=== PATIENT | female | born 2000 | race Caucasian/White ===

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

== ENCOUNTER 2019-11-11 10:01 | Inpatient (IN) | payer OTHER ==
[2019-11-11] VITALS (44 sets, daily range): BP systolic 80–127; BP diastolic 41–73
[~2019-11-11] VITALS: Ht 157.5 cm; Wt 69.4 kg
--- NOTE | 2019-11-11 10:00 | NUR ---
PT BIBA FOR SEIZURES AND DR. SALES TO INTUBATE FOR AIRWAY PROTECTION, AT 1020 DR. SALES INTUBATED PT WITH 7.5 ETT AT 22CM VENT SETTINGS AC14 VT 500 PEEP 5 FIO2 100% B\S ARE DIMINISHED BILATERALLY, SPUTUM COLLECTION PINK TINT THICK SECRETIONS, PT HAS SOFT RESTRAINTS ON BOTH WRISTS AND IS GETTING SEDATION, UNABLE TO GET ABG AT THIS TIME WILL TRY LATER WHEN PT IS MORE CALM. RN BETTYE NOTIFIED AMBU BAG AT SIDE OF VENT AND VENT IS PLUGGED INTO RED OUTLET, ALARMS AND AUDIBLE
--- NOTE | 2019-11-11 10:01 | NUR ---
PT BIBA TAKEN TO BED 6
[2019-11-11] MEDS ORDERED: FLUMAZENIL 0.5 MG/5 ML VIAL IVP ONE ×2 (10:05→10:06)
[2019-11-11] MEDS ORDERED: levETIRAcetam 100 MG/ML VIAL IV ONE (10:10)
--- NOTE | 2019-11-11 10:11 | NUR ---
PATIENT MOVED FROM BED 6 TO BED 10
[2019-11-11] MEDS ORDERED: ETOMIDATE 20 MG/10 ML VIAL IVP ONE ×2 (10:12→10:25)
[2019-11-11] MEDS ORDERED: VECURONIUM 10 MG VIAL IVP ONE ×2 (10:12→10:25)
[2019-11-11] MEDS ORDERED: WATER STERILE 10 ML MC ONE (10:14)
[2019-11-11] MEDS ORDERED: NACL 0.9% 500 ML IV SCH (10:25)
[2019-11-11] MEDS ORDERED: levETIRAcetam 1,000 MG in NACL 0.9% 100 ML IV ONE (10:25)
[2019-11-11] MEDS ORDERED: PROPOFOL 1000 MG/100 ML PREMIX 100 ML IV ONE ×2 (10:30→13:35)
[2019-11-11 11:00] LABS: BASOPHILS # (AUTO) 0.1 K/uL (0.00-0.22); BASOPHILS % (AUTO) 0.5 % (0.0-2.0); EOSINOPHILS # (AUTO) 1.1 K/uL (0-0.4); HEMATOCRIT 49.4 % (36-48); LYMPHOCYTES # (AUTO) 4.7 K/uL (2.5-16.5); MEAN CORPUSCULAR HEMOGLOBIN 31 pg (27-31); MEAN CORPUSCULAR HGB CONC 32 g/dL (33-37); MEAN CORPUSCULAR VOLUME 96.3 fL (80-94); MONOCYTES # (AUTO) 0.3 K/uL (0.8-1.0); MONOCYTES % (AUTO) 1.9 % (1.7-9.3); NEUTROPHILS # (AUTO) 8.8 K/uL (1.8-7.7); PLATELET COUNT (AUTO) 284 K/uL (140-450); RED BLOOD CELL COUNT(AUTO) 5.12 MIL/uL (4.20-5.40); RED CELL DISTRIBUTION WIDTH 14.4 % (11.6-13.7); WHITE BLOOD COUNT (AUTO) 14.9 K/uL (4.5-11.0)
[2019-11-11] MEDS ORDERED: LORazepam 2 MG/ML VIAL IVP ONE (11:05)
[2019-11-11] MEDS ORDERED: LORazepam 2 MG/ML VIAL ONE (11:07)
[2019-11-11 11:18] LABS: EOSINOPHILS % (AUTO) 7.3 % (0.0-4.0); LYMPHOCYTES % (AUTO) 31.3 % (20.5-51.1)
[2019-11-11 11:19] LABS: ALBUMIN 4.3 g/dL (3.4-5.0); CREATININE 1.3 mg/dL (0.6-1.3); TOTAL BILIRUBIN 0.3 mg/dL (0.0-1.0)
[2019-11-11] MEDS ORDERED: PHENYTOIN 1,000 MG in NACL 0.9% 100 ML IV ONE (11:25)
[2019-11-11 11:32] LABS: ANION GAP 22.6 (8-16); CARBON DIOXIDE 17.8 mmol/L (21-32); POTASSIUM 3.4 mmol/L (3.5-5.1)
[2019-11-11 11:34] LABS: PROTHROMBIN TIME 11.5 secs (10.8-13.4)
[2019-11-11] MEDS ORDERED: PIPERACILLIN/TAZOBACTAM 3.375 GM in DEXTROSE 5% 50 ML IV ONE (12:25)
[2019-11-11] MEDS ORDERED: NACL 0.9% 1,500 ML IV ONE (12:25)
[2019-11-11] MEDS ORDERED: PIPERACILLIN/TAZOBACTAM 3.375 GM VIAL IV ONE (12:43)
--- NOTE | 2019-11-11 12:50 | NUR ---
# 16 FR Cano catheter with 10 ml utilizing sterile technique. Immediate return of 100 ml YELLOW urine noted. Bedside drainage bag placed below level of bladder. Urine sample collected and sent to lab. Pt tolerated procedure WELL.
--- NOTE | 2019-11-11 12:55 | NUR ---
URINE COLLECTED AND HANDED TO LAB
[2019-11-11 13:16] LABS: APPEARANCE,URINE CLEAR (CLEAR); BILIRUBIN,URINE NEGATIVE (NEGATIVE); BLOOD, URINE NEGATIVE (NEGATIVE); COLOR,URINE YELLOW (YELLOW); LEUKOCYTE ESTERASE ,URINE NEGATIVE (NEGATIVE); NITRITE, URINE NEGATIVE (NEGATIVE); UGLUCOSE NEGATIVE (NEGATIVE)
[2019-11-11] MEDS ORDERED: fentaNYL 1 MG in NACL 0.9% 80 ML IV PRN (13:35)
--- NOTE | 2019-11-11 13:43 | NUR ---
CALLED PHARMACY TO BRING FENTANYL
--- NOTE | 2019-11-11 13:50 | NUR ---
pt to ct for scan and placed anchor fast on pt ett at 22cm sxn large amt of frothy bloodly secretions changed vent setting to pc 20 rr 14 itime0.70 peep 5 fio2 100% due to high peak pressures
--- NOTE | 2019-11-11 14:30 | NUR ---
TRANSPORTED TO CT VIA HOSPITAL BED FOR CT OF THE HEAD
--- NOTE | 2019-11-11 14:45 | NUR ---
Patient will be admitted to care of DR MUNSON. Admited to ICU BED 2. Belongings list completed. Report to given to GERTRUDIS Perez
--- NOTE | 2019-11-11 14:45 | NUR ---
PT ADMITTED TO ICU FROM ER, REPORT RECEIVED FROM GERTRUDIS SELBY AT BEDSIDE. PT IS SEDATED, RASS -3. FLACC 0. PERRLA. AFEBRILE. SINUS TACHY ON MONITOR. S1 S2 HEARD. ETT TO VENT: A/C PC FIO2 90%, PINSP 20, RR 14, PEEP 7. LUNGS SOUND CLEAR BILATERALLY. BREATHING EVEN AND UNLABORED. ABDOMEN SOFT, NONTENDER. BOWEL SOUNDS PRESENT X 4 QUADRANTS. PERIPHERAL IVS G20 TO RIGHT FOREARM AND G18 TO LEFT AC PATENT AND INTACT, RUNNING PROPOFOL DRIP AT 30 MCG/KG/MIN (11.34 ML/HR. DRY WEIGHT 63 KG), FENTANYL DRIP AT 0.5 MCG/KG/HR (31 MCG/HR). GODOY CATH IN PLACE DRAINING LIGHT YELLOW URINE. SKIN INTACT, DRY AND WARM TO TOUCH. CAP REFILL < [address] HOB 30 DEGREES. BED IN LOWEST POSITION LOCKED. CALL LIGHT WITHIN REACH. WILL CONTINUE TO MONITOR.
[2019-11-11] MEDS ORDERED: PROPOFOL 1000 MG/100 ML PREMIX 100 ML IV SCH (15:10)
[2019-11-11] MEDS ORDERED: ALUMINUM HYD/MAG/SIMETHICONE 30 ML UDC PO PRN (15:15)
[2019-11-11] MEDS ORDERED: IPRATROPIUM 0.02% 0.5 MG/2.5 ML NEBU INH PRN (15:15)
[2019-11-11] MEDS ORDERED: POTASSIUM CHLORIDE 10 MEQ TABER PO PRN (15:15)
[2019-11-11] MEDS ORDERED: ACETAMINOPHEN 650 MG SUPP RC PRN (15:15)
[2019-11-11] MEDS ORDERED: HYDROcodone/APAP 5/325 MG 1 TAB TAB PO PRN ×2 (15:15)
[2019-11-11] MEDS ORDERED: MAG SULF 2000 MG/WATER PREMIX 50 ML IV PRN (15:15)
[2019-11-11] MEDS ORDERED: MAGNESIUM OXIDE 400 MG TAB PO PRN (15:15)
[2019-11-11] MEDS ORDERED: cloNIDine 0.1 MG TAB PO PRN (15:15)
[2019-11-11] MEDS ORDERED: diphenhydrAMINE 50 MG/ML VIAL IVP PRN (15:15)
[2019-11-11] MEDS ORDERED: DOCUSATE SODIUM 250 MG GELCAP PO PRN (15:15)
[2019-11-11] MEDS ORDERED: guaiFENesin DM 200/20 MG-10 ML 10 ML UDC PO PRN (15:15)
[2019-11-11] MEDS ORDERED: ACETAMINOPHEN 325 MG TAB PO PRN (15:15)
[2019-11-11] MEDS ORDERED: ALBUTEROL 0.083% 2.5 MG/3 ML NEBU INH PRN (15:15)
[2019-11-11] MEDS ORDERED: BISACODYL 10 MG SUPP RC PRN (15:15)
[2019-11-11] MEDS ORDERED: SODIUM PHOSPHATE 118 ML ENEM RC PRN (15:15)
--- NOTE | 2019-11-11 15:15 | NUR ---
PT SEEN AND EXAMINE PT DR. MUNSON AT BEDSIDE. ORDERS RECEIVED. Addendum: 11/11/19 at 1853 by Rohan Barr RN DISCONTINUE FENTANYL DRIP PER DR. MUNSON. ORDER CARRIED OUT.
[2019-11-11] MEDS: DEXT 5% /NACL 0.9% 1,000 ML IV SCH (15:45)
--- NOTE | 2019-11-11 16:00 | NUR ---
VAP ORAL CARE GIVEN. TURNED AND REPOSITIONED FOR COMFORT AND PRESSURE OFF LOADING.
--- NOTE | 2019-11-11 18:00 | NUR ---
PT'S MOTHER AT BEDSIDE. UPDATES GIVEN ON PT'S CONDITION.
[2019-11-11] MEDS ORDERED: ALBUTEROL 0.083% 2.5 MG/3 ML NEBU INH SCH (19:00)
[2019-11-11] MEDS: ALBUTEROL 0.083% 2.5 MG/3 ML NEBU INH SCH (19:22)
--- NOTE | 2019-11-11 19:30 | NUR ---
RECIEVED PT FROM ROGERIO RN. RESTING IN BED COMFORTABLY. RASS-3 ACHIEVED PER MD ORDERS. PERRL WITH PUPILS @ 2MM, BRISK. ETT TO VENT IN PLACE WITH SETTINGS FOLLOWS: AC/PC FI02 40%, RATE 14, PEEP 7. PERIPHERAL IV'S TO RT FA/ LT AC PATENT. INFUSING D5 NS @ 50ML/HR, PROPOFOL @ 35MCG/KG/MIN. DRY WEIGHT [address] DRAINING CLEAR, YELLOW, URINE TO GRAVITY. SOFT WRIST RESTRAINTS IN PLACE. CIRCULATION CHECK WNL, NO INJURIES OBSERVED. PRESSURE AREAS OFFLOADED. SKIN WARM, DRY, AND INTACT. ST ON MONITOR. SAFETY PRECAUTIONS REMAIN IN PLACE WITH BED LOW AND LOCKED. CALL LIGHT WITHIN REACH. HOB @ 30 DEGREES WITH SEIZURE PRECAUTIONS IN PLACE. WILL CONT TO MONITOR.
--- NOTE | 2019-11-11 19:30 | NUR ---
REPORT GIVEN TO PSYCHIATRIC AIDE INSTRUCTOR RN FOR CONTINUITY OF CARE. PT IS IN STABLE CONDITION.
[2019-11-11] MEDS ORDERED: KCL 20 MEQ/WATER INJ PREMIX 200 ML IV ONE (19:45)
[2019-11-11] MEDS: FAMOTIDINE 20 MG/2 ML VIAL IV SCH (20:12)
[2019-11-11] MEDS: levETIRAcetam 1,000 MG in NACL 0.9% 100 ML IV SCH (20:13)
[2019-11-11] MEDS: PROPOFOL 1000 MG/100 ML PREMIX 100 ML IV PRN (20:48)
[2019-11-11] MEDS ORDERED: ZOLPIDEM 5 MG TAB PO PRN (21:00)
--- NOTE | 2019-11-11 22:00 | NUR ---
REPOSITIONED WITH PRESSURE AREAS OFFLOADED. FLACC 0. SUCTIONED ETT WITH SCANT AMOUNT OF BLOOD-TINGED SECRETIONS. SAFETY PRECAUTIONS REMAIN IN PLACE. BED LOW AND LOCKED. HOB REMAINS @ 30 DEGREES.
[2019-11-12] VITALS (52 sets, daily range): BP systolic 80–128; BP diastolic 41–82
--- NOTE | 2019-11-12 | NUR ---
VAP ORAL CARE PROVIDED. REPOSITIONED FOR COMFORT. FLACC 0. CONTINUES ON SEDATION WITH RASS -3 ACHIEVED PER MD ORDERS. SAFETY PRECAUTIONS REMAIN IN PLACE. BED LOW AND LOCKED. WILL CONT TO MONITOR.
[2019-11-12] MEDS: ALBUTEROL 0.083% 2.5 MG/3 ML NEBU INH SCH ×4 (01:29→19:54)
--- NOTE | 2019-11-12 01:39 | NUR ---
PATIENTS FIO2 HAS BEEN TITRATED DOWN TO 30% through out shift. sats 98%
--- NOTE | 2019-11-12 02:00 | NUR ---
RASS -3 AT THIS TIME. REPOSITIONED WITHPRESSURE AREAS OFFLOADED. MAREN/CATH CARE PROVIDED. SAFETY PRECAUTIONS IN PLACE. WILL CONT TO MONITOR.
[2019-11-12] MEDS: MORPHINE SULFATE 2 MG/ML SYR IVP PRN ×3 (03:19→14:47)
[2019-11-12] MEDS: PROPOFOL 1000 MG/100 ML PREMIX 100 ML IV PRN (03:23)
[2019-11-12] MEDS: LORazepam 2 MG/ML VIAL IVP PRN ×3 (04:50→19:22)
[2019-11-12 05:49] LABS: ANION GAP 18.5 (8-16); CARBON DIOXIDE 18.4 mmol/L (21-32); CREATININE 1.2 mg/dL (0.6-1.3); POTASSIUM 3.9 mmol/L (3.5-5.1)
[2019-11-12 06:05] LABS: HEMATOCRIT 41.1 % (36-48); HEMOGLOBIN 13.5 g/dL (12.0-16.0); MEAN CORPUSCULAR HEMOGLOBIN 31 pg (27-31); MEAN CORPUSCULAR HGB CONC 33 g/dL (33-37); MEAN CORPUSCULAR VOLUME 93.9 fL (80-94); PLATELET COUNT (AUTO) 175 K/uL (140-450); RED BLOOD CELL COUNT(AUTO) 4.38 MIL/uL (4.20-5.40); RED CELL DISTRIBUTION WIDTH 14.2 % (11.6-13.7); WHITE BLOOD COUNT (AUTO) 16.3 K/uL (4.5-11.0)
--- NOTE | 2019-11-12 06:33 | NUR ---
REC'D PT ON [place] VENT SETTINGS PC20 RR 13 PEEP 7 ITIME 0.70 FIO2 30% ALARMS ON AND AUDIBLE AND AMBU BAG AT [facility] AND VENT IS PLUGGED INTO RED OUTLET, I\L TX GIVEN WITH ALBUTEROL 2.5MG WITH NO ADVERSE REACTION POST TX B\S ARE CLEAR BILATERALLY, SXN PT SMALL AMT OF BLOOD TINT SECRETIONS, PT IS ORALLY INTUBATED WITH 7.5 ETT SECURED AT 23 CM WITH ANCHOR FAST PT IS SEDATED WITH SOFT WRISTS RESTRAINTS
[2019-11-12 07:14] LABS: LYMPHOCYTES % (MANUAL) 4 % (20-46)
[2019-11-12 07:15] LABS: BASOPHILS % (MANUAL) 0 % (0-2); EOSINOPHILS % (MANUAL) 1 % (0-4); MONOCYTES % (MANUAL) 4 % (5-12)
--- NOTE | 2019-11-12 07:30 | NUR ---
RECIEVED PT FROM PM SHIFT RN. PT SEDATED RASS-3 , PERRL WITH PUPILS @ 3MM, BRISK. BEDSIDE MONITOR SHOWS ST 120S. ETT TO VENT WITH SETTINGS FOLLOWS: AC/PC FI02 30%, RATE 14, PEEP 7. LUNG SOUND CLEAR. PERIPHERAL IV'S TO RT FA# 20 AND LT AC # 18 PATENT. INFUSING D5 1/2NS @ 50ML/HR, PROPOFOL @ 30MCG/KG/MIN BASED ON DRY WEIGHT 63 KG.SOFT WRIST RESTRAINTS IN PLACE. CIRCULATION CHECK WNL, NO INJURIES NOTED . GODOY IN PLACE WITH CLEAR, YELLOW, URINE NOTED. SKIN WARM, DRY, AND INTACT. SAFETY PRECAUTIONS REMAIN IN PLACE WITH LOW BED POSITION AND LOCKED. CALL LIGHT WITHIN REACH. HOB @ 30 DEGREES WITH SEIZURE PRECAUTIONS IN PLACE. WILL CONT TO MONITOR.
--- NOTE | 2019-11-12 08:26 | NUR ---
called back, notified pt [id number] since I this morning and table games shift manager. SBP 80S AND PT IS ON PROPOFOL DRIP. PER DR. MUNSON, TRY TO DECREASE PROPOFOL DRIP AND MAKE PT MORE AWAKE. HE WANTS TO EXTUBATE PT TODAY, ALSO NOTIFIED DR. MUNSON REGARDING THIS MORNING X-RAY REPORT. DR. MUNSON STATED HE WILL COME TO CHECK. CHARGE NURSE JAYLON MCKENZIE MADE AWARE.
[2019-11-12] MEDS: levETIRAcetam 1,000 MG in NACL 0.9% 100 ML IV SCH ×2 (08:36→20:30)
[2019-11-12] MEDS: ENOXAPARIN 40 MG/0.4 ML SYR SUBQ SCH (08:37)
[2019-11-12] MEDS: FAMOTIDINE 20 MG/2 ML VIAL IV SCH ×2 (08:37→20:30)
--- NOTE | 2019-11-12 08:51 | NUR ---
PATIENT HAS BEEN SCREENED AND CATEGORIZED HIGH NUTRITION RISK. PATIENT WILL BE SEEN WITHIN 1-2 DAYS OF ADMISSION. 11/10/19-11/13/[address]
--- NOTE | 2019-11-12 09:45 | NUR ---
DR. MUNSON AT BEDSIDE TALKING TO PT PLACED PT ON CPAP 5 PS 10 THEN AT 0950 EXTUBATED PT PLACED ON 2LNC GERTRUDIS SCOTT AT BEDSIDE
--- NOTE | 2019-11-12 09:50 | NUR ---
DR. MUNSON CAME IN TO CHECK PT. ORDER TO EXTUBATE PT AND PT ON O2 NC 2L/MIN . PT TOLERATED WELL. Addendum: 11/12/19 at 1715 by Rebeca Kate RN PT OFF RESTRAIN AT 0950.
--- NOTE | 2019-11-12 10:28 | NUR ---
SPOKE TO PATIENT'S SISTER AND MOTHER, UPDATED PATIENT'S CONDITION AT THIS TIME, PATIENT IS ALERT AND ORIENTED, EXTUBATED, BUT ANXIOUS AND AGITATED, THEY WILL COME TO SEE PATIENT MELVI.
--- NOTE | 2019-11-12 10:35 | NUR ---
F/C REMOVED PER ORDER. TIP INTACT. URINE OUT PUT 500 CC.
--- NOTE | 2019-11-12 10:54 | NUR ---
PATIENT IS AGITATED, TRYING TO GET OUT OF THE BED, SCREAMING AND VERBAL ABUSED TO NURSES, TRYING TO COME PATIENT DOWN, PATIENT IS MORE AGITATED, ATIVAN GIVEN, PATIENT IS MORE CALM, WILL CONTINUE TO MONITOR.
[2019-11-12] MEDS: ONDANSETRON 4 MG/2 ML VIAL IVP PRN ×3 (11:24→22:45)
--- NOTE | 2019-11-12 11:44 | NUR ---
DISCHARGE PLANNING: THIS IS A 19 Y/O FEMALE PATIENT FROM HOME, WHO WAS BROUGHT IN BY AMBULANCE IN DUE TO SEIZURE. PAST MEDICAL HISTORY SEIZURE. INITIAL DIAGNOSIS OF STATUS EPILEPTICUS AND RESPIRATORY FAILURE. CURRENT LABS INCLUDE WBC 16.3, H/H 13.5/41.1, NA/K 144/3.9, BUN/CREA 9/1.2 AND LACTIC ACID 4.3. CURRENT MEDS INCLUDE ROCEPHIN, KEPPRA. ORALLY INTUBATED IN THE ED, WAS PLACED ON VENT. ON PROPOFOL DRIP. NEURO CONSULT WITH DR. PRINGLE IN PLACE. DC PLAN PENDING ON THE PATIENT'S RESPONSE TO TREATMENT.
[2019-11-12] MEDS: DEXT 5% /NACL 0.9% 1,000 ML IV SCH (12:35)
--- NOTE | 2019-11-12 12:37 | NUR ---
PT STATED SHE WANTS TO GO HOME. EXPLAINED TO PT SHE NEEDS ONE MORE DAY MONITORING PER MD. PT'S MOTHER AT BEDSIDE.
--- NOTE | 2019-11-12 13:14 | NUR ---
11/12/19 RD INITIAL ASSESSMENT COMPLETED PLEASE REFER TO NUTRITION ASSESSMENT UNDER CARE ACTIVITY FOR ESTIMATED NUTRITIONAL NEEDS. 1. CONTINUE NPO MEDICALLY APPROPRIATE 2. PENDING SPEECH THERAPIST RECOMMENDATIONS FOR DIET TEXTURE AND LIQUID CONSISTENCY 3. RD TO FOLLOW-UP 2-3 DAYS, HIGH RISK ESA HIRSCH, PATRICIA
[2019-11-12] MEDS ORDERED: ALBUTEROL 0.083% 2.5 MG/3 ML NEBU INH ONE (13:15)
--- NOTE | 2019-11-12 13:16 | NUR ---
*S.T. BEDSIDE SWALLOW EVAL COMPLETED* See report for details. Pt presents w/ mild-mod oropharyngeal dysphagia c/b weak oromotor function w/ prolonged mastication, anterior lingual residue, open mouth posture at rest, delayed pharyngeal swallow response and coughing w/ ice chips fed by mother while lying supine. Pt was agitated throughout the eval, defiant w/ nsg and mother re: keepin nasal cannula O2 on and participation in eval. Recommend: 1) Mechanical soft ground diet, thin liquids okay, straws okay. 2) Advance diet slowly as tolerated to regular diet, when pt's coordination, alertness, safety awareness improve. 3) P.O. meds okay whole, one at a time. 4) Nsg to assist w/ tray set up to promote self-feeding 5) Withhold meal trays if pt is lethargic 6) Aspiration precautions to include: fully upright at 90 degrees, awake/alert only, small bites, sips at slow pace, no talking or use of devices or other distractions during meals/P.O. intake. No further tx indicated at this time. DC to nsg care. D/W GERTRUDIS Mendes. Time [id number]
--- NOTE | 2019-11-12 17:15 | NUR ---
PT SLEEPING IN BED. HR 115S. O2 SATS 93%, RR 20.
--- NOTE | 2019-11-12 17:51 | NUR ---
PT SLEEPING, OFFERED PT DINNER TRAY, PT STATED SHE DOES NOT WANT TO EAT AT THIS TIME.
--- NOTE | 2019-11-12 19:22 | NUR ---
PT C/O ANXIETY. ATTEMPTING TO STAND UP FROM BED UNASSISTED. ATIVAN ADMINISTERED ORDERED WITH GOOD EFFECT. SAFETY/SEIZURE PRECAUTIONS REMAIN IN PLACE. BED LOW AND LOCKED. EDUCATED PT ON IMPORTANCE OF REQUESTING ASSISTANCE WITH ALL TRANSFERS VIA CALL LIGHT. CALL LIGHT LEFT WITHIN REACH. WILL CONT TO MONITOR
--- NOTE | 2019-11-12 19:30 | NUR ---
RECEIVED PT FROM ROGERIO CABA. RESTING IN BED WITH MOTHER AT BEDSIDE. PERRL WITH PUPILS @ 3MM, BRISK. PERIPHERAL IV'S TO RT FA PATENT. PT C/O NAUSEA AND HEAVING. ZOFRAN ADMINISTERED ORDERED WITH GOOD EFFECT. SKIN WARM, DRY, AND INTACT. ST ON MONITOR. CONTINUES ON 2LPM VIA NC. SPO2 @ 93%. LUNGS CLEAR THROUGHOUT. SAFETY PRECAUTIONS REMAIN IN PLACE WITH BED LOW AND LOCKED. CALL LIGHT WITHIN REACH. HOB @ 30 DEGREES WITH SEIZURE PRECAUTIONS IN PLACE. WILL CONT TO MONITOR.
--- NOTE | 2019-11-12 22:00 | NUR ---
VAP ORAL CARE PROVIDED. REPOSITIONED WITH PRESSURE AREAS OFFLOADED. SAFETY PRECAUTIONS REMAIN IN PLACE. BED LOW AND LOCKED. SEIZURE PRECAUTIONS REMAIN IN PLACE.
--- NOTE | 2019-11-12 22:45 | NUR ---
ZOFRAN ADMINISTERED FOR C/O NAUSEA. TOLERATED WELL. WILL FOLLOW UP.
[2019-11-13] VITALS (10 sets, daily range): BP systolic 90–141; BP diastolic 49–87
--- NOTE | 2019-11-13 | NUR ---
PT RESTING IN BED COMFORTABLY, EASILY AROUSABLE. NO RESPIRATORY DISTRESS NOTED. DENIES PAIN. SAFETY PRECAUTIONS REMAIN IN PLACE WITH CALL LIGHT WITHIN REACH
[2019-11-13] MEDS: ALBUTEROL 0.083% 2.5 MG/3 ML NEBU INH SCH ×4 (02:00→21:07)
--- NOTE | 2019-11-13 02:00 | NUR ---
PT UP USING BEDSIDE COMMODE AT THIS TIME.
--- NOTE | 2019-11-13 04:00 | NUR ---
OFFERED PT BED BATH @ THIS TIME. PT REFUSED D/T BEING "COLD."
[2019-11-13 05:18] LABS: BASOPHILS # (AUTO) 0.1 K/uL (0.00-0.22); BASOPHILS % (AUTO) 0.6 % (0.0-2.0); EOSINOPHILS # (AUTO) 0.2 K/uL (0-0.4); EOSINOPHILS % (AUTO) 1.8 % (0.0-4.0); HEMATOCRIT 34.3 % (36-48); HEMOGLOBIN 11.5 g/dL (12.0-16.0); LYMPHOCYTES # (AUTO) 1.3 K/uL (2.5-16.5); LYMPHOCYTES % (AUTO) 9.8 % (20.5-51.1); MEAN CORPUSCULAR HEMOGLOBIN 31 pg (27-31); MEAN CORPUSCULAR HGB CONC 34 g/dL (33-37); MEAN CORPUSCULAR VOLUME 92.3 fL (80-94); MONOCYTES # (AUTO) 0.3 K/uL (0.8-1.0); MONOCYTES % (AUTO) 2.6 % (1.7-9.3); NEUTROPHILS # (AUTO) 11.6 K/uL (1.8-7.7); NEUTROPHILS % (AUTO) 85.2 % (42.2-75.2); PLATELET COUNT (AUTO) 158 K/uL (140-450); RED BLOOD CELL COUNT(AUTO) 3.71 MIL/uL (4.20-5.40); RED CELL DISTRIBUTION WIDTH 13.9 % (11.6-13.7); WHITE BLOOD COUNT (AUTO) 13.6 K/uL (4.5-11.0)
[2019-11-13] MEDS: ONDANSETRON 4 MG/2 ML VIAL IVP PRN ×2 (05:50→18:07)
[2019-11-13 05:53] LABS: ANION GAP 13.4 (8-16); CARBON DIOXIDE 23.2 mmol/L (21-32); CREATININE 0.8 mg/dL (0.6-1.3); POTASSIUM 3.6 mmol/L (3.5-5.1)
--- NOTE | 2019-11-13 07:14 | NUR ---
REPORT GIVEN TO DAYSHIFT RN FOR CONTINUITY OF CARE
--- NOTE | 2019-11-13 07:30 | NUR ---
RECEIVED PT FROM PM SHIFT RN. SLEEPING BUT AROUSABLE. BEDSIDE MONITOR SHOWS ST. PUPILS BRISK. PERIPHERAL IV'S TO LEFT FA PATENT. SKIN WARM, DRY, AND INTACT. PT ON RA, SPO2 @ 92%. LUNGS CLEAR THROUGHOUT. PT REFUSED O2 NC. SAFETY PRECAUTIONS REMAIN IN PLACE WITH BED LOW POSITION. CALL LIGHT WITHIN REACH. HOB @ 30 DEGREES WITH SEIZURE PRECAUTIONS IN PLACE. WILL CONT TO MONITOR
--- NOTE | 2019-11-13 08:06 | NUR ---
ASSISTED PT TO USE BEDSIDE COMMODE, PT HAD MODERATE AMOUNT OF BROWNISH SOFT BM. CLEANED PT. PT ALSO HAVE NAUSEA AT THIS TIME, FOUND PT PUT HER LEFT PINK FINGER IN TO HER MOUTH, TOLD PT NOT PUT FINGER IN HER MOUTH, PT STATED" THIS CAN HELP ME TO THROW UP FASTER AND EASIER".
--- NOTE | 2019-11-13 08:30 | NUR ---
OFFERED BREAKFAST TRAY, PT ONLY DRINK SOME ORANGE JUICE. PT STATED SHE DOES NOT WANT TO EAT.
[2019-11-13] MEDS: ENOXAPARIN 40 MG/0.4 ML SYR SUBQ SCH (09:28)
[2019-11-13] MEDS: FAMOTIDINE 20 MG/2 ML VIAL IV SCH ×2 (09:28→20:49)
[2019-11-13] MEDS: levETIRAcetam 1,000 MG in NACL 0.9% 100 ML IV SCH ×2 (09:28→20:48)
--- NOTE | 2019-11-13 09:30 | NUR ---
PT HAD FEVER AT 0849, TEMP 100.4F. TYLENOL GIVEN, AND ENCOURAGED PT TO DRINK MORE WATER. RECHECK AT THIS TIME ORAL TEMP 99.1F.
[2019-11-13] MEDS ORDERED: guaiFENesin/CODEINE 100/10MG 5 ML UDC ONE (09:46)
--- NOTE | 2019-11-13 10:45 | NUR ---
DR. MUNSON CAME IN TO CHECK PT. UPDATED PT HAD FEVER AND COUGH THIS MORNING, AGTER MEDICATION GIVEN. PT SYMPTOMS GETTING BETTER. DR. MUNSON DID PHYSICAL EXAM ON PT, THEN DR. MUNSON STATED OK TO TRANSFER. Addendum: 11/13/19 at 1841 by Rebeca Kate RN DR. MUNSON MADE AWARE OF PT HR 110S.
[2019-11-13] MEDS ORDERED: PROBIOTIC SCREEN 1 EA MISC MC PRN (10:55)
--- NOTE | 2019-11-13 12:06 | NUR ---
PCP Appointment: KOBE attempted to arrange for PCP appointment and spoke to Ellen at Dr. Jaswinder Kang's office [phone]. Per Ellen, clinic is not allowing PCP appointments due to COVID-19. KOBE informed Ellen that patient was an [facility] patient. Ellen stated she would contact physician and follow up with SW to coordinate hospital follow up.
--- NOTE | 2019-11-13 13:34 | NUR ---
PT'S MOTHER AT BEDSIDE.
--- NOTE | 2019-11-13 15:55 | NUR ---
PT SLEEPING QUIETLY IN BED, NO S/S OF RESPIRATORY DISTRESS NOTED. O2 SATS BETWEEN 94-100%.
--- NOTE | 2019-11-13 17:30 | NUR ---
TRANSFERRED PT TO TELE 110 B. PT AMBULATE FROM HALLWAY TO PT'S BED. REPORT GIVEN TO PAULA. NOTIFIED PAULA PT HAS O2 NC 2L/MIN BUT PT WAS ON RA THE WHOLE DAY WITHOUT DESATING. PT DOES NOT LIKE NC EITHER, PT WILL REMOVE IT.
--- NOTE | 2019-11-13 17:31 | NUR ---
RECEIVED REPORT FROM GUEST EXPERIENCE MANAGER SONIA. PT AAOX4, DENIES PAIN. IV ON RT FA 2O GA RUNNING IVF PER ORDER. PT ON CONTINUITY MANAGER. RESPIRATIONS EVEN AND UNLABORED ON RA. ABD SOFT, ACTIVE BS, PT HAD MULTIPLE EPISODES OF VOMITING. SKIN IS INTACT WARM TO TOUCH. REVIEWED POC WITH PT, PT VERBALIZED UNDERSTANDING.
--- NOTE | 2019-11-13 18:07 | NUR ---
ADMINISTERED ZOFRAN PER ORDER, PT HAD MULTIPLE EPISODES OF VOMITING WITH MINIMAL AMOUNT OF CLEAR FLUID. PT REFUSES TO EAT DINNER AT THIS TIME.
--- NOTE | 2019-11-13 19:12 | NUR ---
ADMINISTERED O2 2L VIA N/C, PT C/O DYSPNEA, RR 16, EVEN AND UNLABORED.
--- NOTE | 2019-11-13 19:20 | NUR ---
ENDORSED PT TO GERTRUDIS LINDQUIST. PT HAS NO S/S OF DISTRESS AT THIS TIME.
--- NOTE | 2019-11-13 19:21 | NUR ---
RECEIVED BEDSIDE SHIFT REPORT FROM AM NURSE FOR CONTINUITY OF CARE. PATIENT AWAKE IN BED. NO SIGNS OF DISTRESS NOTED. RESPIRATIONS EVEN AND UNLABORED ON 2L O2 VIA NC. TELE MONITOR IN PLACE. SAFETY MEASURES IN PLACE BED IN LOW POSITION CALL LIGHT WITHIN REACH
--- NOTE | 2019-11-13 20:48 | NUR ---
2100 MEDS ADMINISTERED FOR PATIENT. PT TOLERATED WELL. NO SIGNS OF DISTRESS NOTED.
--- NOTE | 2019-11-13 23:30 | NUR ---
PT ACTIVATED BED ALARM. ASSISTED PT TO GO TO THE RESTROOM. PTS GAIT UNSTEADY AND PT OUT OF CONTACT WITH REALITY STATING THAT HER MOTHER WAS OUTSIDE OF THE WINDOW CONVERSING WITH HER. TRIED TO REORIENT PATIENT TO SITUATION. PT BECAME UPSET AND STARTED CURSING AT NURSES CALLING NURSES LIARS AND REQUESTING TO SPEAK WITH . ASSISTED PT TO BED ADDRESSED PTS NEEDS.
[2019-11-14] VITALS: BP 112/64
[2019-11-14] MEDS: ALBUTEROL 0.083% 2.5 MG/3 ML NEBU INH SCH ×2 (01:39→07:42)
--- NOTE | 2019-11-14 02:00 | NUR ---
ROUNDING. PT RESTING IN BED. NO SIGNS OF DISTRESS NOTED. PT RESPIRATIONS EVEN AND UNLABORED. TELE MONITOR IN PLACE. SAFETY MEASURES IN PLACE. BED ALARM ACTIVATED. CALL-LIGHT WITHIN REACH
[2019-11-14 04:00] VITALS: BP 114/66
--- NOTE | 2019-11-14 04:15 | NUR ---
FOUND PATIENT WITH IV CATHETER OUT. PT REFUSED TO HAVE NEW IV INSERT. PT INSISTS SHE IS GOING HOME IN AM. EXPLAINED TO PT THAT SHE HAS SCHEDULED IV KEPPRA DUE AT 0900 FOR SEIZURE. PT AGREED TO IV INSERT.
--- NOTE | 2019-11-14 04:45 | NUR ---
PT WENT TO THE RESTROOM WITNESSED BY ANOTHER RN. ASSISTED PT BACK TO BED. GAIT MORE STEADY. EXPLAINED TO PT ABOUT NEW IV INSERT. PT REFUSED IV INSERT SHE INSISTED THAT SHE WILL BE GOING HOME TODAY IN AM. SHE USED FOUL LANGUAGE TO DESCRIBE PREVIOUS NURSES AND TECHS. TRIED TO REEDUCATE PATIENT ON IMPORTANCE OF IV INSERTION FOR SEIZURE MEDS. PT STILL REFUSED. WILL NOTIFY
--- NOTE | 2019-11-14 06:00 | NUR ---
PAGECharissa SOLIS TO REPORT PT REFUSAL OF NEW IV INSERT. PT AWAKE LYING DOWN IN BED. REQUESTED AND PROVIDED WITH HALF A CUP OF WATER. NO SIGNS OF DISTRESS NOTED. WILL ENDORSE TO AM NURSE FOR CONTINUITY OF CARE.
--- NOTE | 2019-11-14 06:15 | NUR ---
CALLED AND NOTIFIED FOR IV INSERT REFUSAL. NEW ORDER PO KEPPRA 1,000 MG Q12H, AND LORETTA IV KEPPRA.
[2019-11-14 07:02] LABS: BASOPHILS % (AUTO) 0.2 % (0.0-2.0); EOSINOPHILS # (AUTO) 0.2 K/uL (0-0.4); HEMATOCRIT 33.4 % (36-48); HEMOGLOBIN 11.2 g/dL (12.0-16.0); LYMPHOCYTES # (AUTO) 1.5 K/uL (2.5-16.5); LYMPHOCYTES % (AUTO) 13.1 % (20.5-51.1); MEAN CORPUSCULAR HEMOGLOBIN 31 pg (27-31); MEAN CORPUSCULAR HGB CONC 34 g/dL (33-37); MEAN CORPUSCULAR VOLUME 92.4 fL (80-94); MONOCYTES # (AUTO) 0.4 K/uL (0.8-1.0); MONOCYTES % (AUTO) 3.2 % (1.7-9.3); NEUTROPHILS # (AUTO) 9.2 K/uL (1.8-7.7); NEUTROPHILS % (AUTO) 81.5 % (42.2-75.2); PLATELET COUNT (AUTO) 179 K/uL (140-450); RED BLOOD CELL COUNT(AUTO) 3.62 MIL/uL (4.20-5.40); RED CELL DISTRIBUTION WIDTH 13.9 % (11.6-13.7); WHITE BLOOD COUNT (AUTO) 11.2 K/uL (4.5-11.0)
[2019-11-14 07:07] LABS: CARBON DIOXIDE 26.4 mmol/L (21-32); CREATININE 0.6 mg/dL (0.6-1.3); POTASSIUM 3.4 mmol/L (3.5-5.1)
--- NOTE | 2019-11-14 07:30 | NUR ---
RECEIVED PT. FROM PLATING STRIPPER NURSEAMEENA. IV REMOVED BY PT. AT 0700. PT IS ALERT AND IN BED. VERBALIZES NO PAIN AND WISHES TO BE DISCHARGED TODAY. FALL PRECAUTIONS INITIATED. V/S STABLE. CALL LIGHT WITHIN REACH. WILL CONTINUE TO MONITOR.
[2019-11-14 08:00] VITALS: BP 108/64
[2019-11-14] MEDS: ENOXAPARIN 40 MG/0.4 ML SYR SUBQ SCH (08:39)
[2019-11-14] MEDS: FAMOTIDINE 20 MG/2 ML VIAL IV SCH (08:40)
--- NOTE | 2019-11-14 08:43 | NUR ---
MORNING MEDICATIONS GIVEN. NO SIGNS OF DISTRESS NOTED. REFUSED PEPCID IV AND LOVENOX SUBQ, PT. STATES NOT WANTING TO BE POKED AGAIN. WILL CONTINUE TO MONITOR.
[2019-11-14] MEDS ORDERED: levETIRAcetam 500 MG TAB PO SCH (09:00)
--- NOTE | 2019-11-14 11:00 | NUR ---
DR. MUNSON IS WITH THE PT. DISCHARGED ORDERS FOR TODAY WERE GIVEN.
[2019-11-14 12:13] VITALS: BP 108/64
--- NOTE | 2019-11-14 12:30 | NUR ---
PT. IS DISCHARGED NOW. DISCHARGED INSTRUCTIONS AND TEACHINGS GIVEN. VERBALIZES UNDERSTANDING AND NO SIGNS OF DISTRESS NOTED. PT. IS GOING HOME WITH FAMILY TO HOME.
== END 2019-11-14 12:30 | disposition home or self-care (01) | DRG 53 ==
LOC: MED 10:01 → MIC 14:25 → MTU 11-13 17:15
PROVIDERS: ADMIT Internal Medicine Pulmonary Disease; ATTEND Internal Medicine Pulmonary Disease
PROC: 5A1935Z Respiratory Ventilation, Less than 24 Consecutive Hours (ICD-10-PCS; principal; 2019-11-11)
PROC: 0BH17EZ Insertion of Endotracheal Airway into Trachea, Via Natural or Artificial Opening (ICD-10-PCS; 2019-11-11)
DX: G40.901 Epilepsy, unspecified, not intractable, with status epilepticus (principal); J96.00 Acute respiratory failure, unspecified whether with hypoxia or hypercapnia; J69.0 Pneumonitis due to inhalation of food and vomit; R40.20 Unspecified coma; J45.909 Unspecified asthma, uncomplicated; Z79.899 Other long term (current) drug therapy
CPT/HCPCS: 31500; 36415; 36600; 70450; 71045; 80048; 80053; 80173; 81003; 82803; 83605; 83735; 85025; 85610; 85730; 87040; 87070; 87081; 87086; 87205; 89220; 92610; 93005; 94002; 94003; 94640; 96361; 96365; 96367; 96368; 96375; 99291; J0696; J1165; J1650; J1953; J2060; J2270; J2405; J2543; J2704; J3010; J3480; J3490; J7030; J7042; J7060; J7613; Q0092

== ENCOUNTER 2019-11-15 07:53 | Emergency (ER) | payer OTHER ==
[~2019-11-15] VITALS: Ht 165.1 cm; Wt 65.3 kg
--- NOTE | 2019-11-15 07:56 | NUR ---
AMBULATED TO BED 2
[2019-11-15 08:02] VITALS: BP 127/72
--- NOTE | 2019-11-15 08:06 | NUR ---
19 Y/O FEMALE C/O SOB WITH NAUSEA AND VOMITING SINCE YESTERADY. PT STATES SHE WAS DISCHARGED FROM [facility] YESTERDAY MORNING FOR SEIZURE SHE HAD TUESDAY. PT STATES CHANGE OF APPETITE. DENIES DIARRHEA. ABD SOFT, ROUND, NON TENDER TO PALP. BOWEL SOUNDS ACTIVE. RR EVEN AND UNLABORED, NO ACCESSORY MUSCLE USE. DENIES COUGH. PT AFEBRILE, DENIES CHILLS. X 1 SIDE RAIL RAISED, BED LOCKED AND IN LOW POSITION. PT PLACED ON MONITOR. MEDHX: SEIZURES ALLERGIES: NKA
--- NOTE | 2019-11-15 08:23 | NUR ---
DR SALES EXAMINING PT
--- NOTE | 2019-11-15 08:29 | NUR ---
RADIOLOGY AT BEDSIDE
[2019-11-15] MEDS ORDERED: ALBUTEROL SULFATE/IPRATROPIU 3 ML SOL IH ONE (08:30)
--- NOTE | 2019-11-15 08:45 | NUR ---
RESPIRATORY AT BEDSIDE FOR INTERVENTION
--- NOTE | 2019-11-15 09:08 | NUR ---
PT VOMITING AT THIS TIME, DR SALES MADE AWARE
[2019-11-15] MEDS ORDERED: ONDANSETRON 4 MG/2 ML VIAL IM ONE (09:15)
--- NOTE | 2019-11-15 09:18 | NUR ---
REFUSED MEDICATION. STATES SHE IS FEELING BETTER. DR SALES MADE AWARE
[2019-11-15 09:31] VITALS: BP 105/69
--- NOTE | 2019-11-15 09:31 | NUR ---
Patient discharged with v/s stable. Written and verbal after care instructions given and explained. Patient verbalized understanding. Ambulatory with steady gait. All questions addressed prior to discharge. Advised to follow up with PMD.
== END 2019-11-15 09:31 | disposition home or self-care (01) ==
LOC: MED 07:53
DX: F41.9 Anxiety disorder, unspecified (principal); Z79.899 Other long term (current) drug therapy
CPT/HCPCS: 71045; 94640; 99283; Q0092; J2405

== ENCOUNTER 2020-03-12 15:46 | Emergency (ER) | payer OTHER ==
[~2020-03-12] VITALS: Ht 167.6 cm; Wt 71.7 kg
[2020-03-12 16:00] VITALS: BP 113/79
--- NOTE | 2020-03-12 16:02 | NUR ---
BIBA TAKEN TO BED 3
--- NOTE | 2020-03-12 16:17 | NUR ---
PT BIBA FOR SEIZURES, PER PT SHE HAD A SEIZURE FOR 2MINS. PT STATES SHE IS TAKING A NEW SEIZURE MEDICATION AND SINCE THEN HAS BEEN FEELING NAUSEA, AND FEELING LIKE SHE IS GOIGN TO HAVE SEIZURE FREQUENTLY. PT AOX4, BREATHING EVEN AND UNLABORED, SKIN WARM AND DRY. BED IN LOWEST POSITION, LOCKED, BED RAIL UPX1. SEIZURE PRECAUTIONS ON. PMH - SEIZURE ALLERGIES - NKA
[2020-03-12] MEDS ORDERED: ONDANSETRON 4 MG ODT PO ONE (16:20)
[2020-03-12] MEDS ORDERED: IBUPROFEN 600 MG TAB PO ONE (16:20)
--- NOTE | 2020-03-12 16:28 | NUR ---
PT ALERT AND AWAKE, BREATHING EVEN AND UNLABORED
[2020-03-12 16:30] VITALS: BP 113/79
--- NOTE | 2020-03-12 16:30 | NUR ---
Patient discharged with v/s stable. Written and verbal after care instructions about epilepsy given and explained. Patient verbalized understanding. Ambulatory with steady gait. All questions addressed prior to discharge. Advised to follow up with PMD.
== END 2020-03-12 16:30 | disposition home or self-care (01) ==
LOC: MED 15:46
DX: G40.909 Epilepsy, unspecified, not intractable, without status epilepticus (principal); Z79.899 Other long term (current) drug therapy
CPT/HCPCS: 99283; Q0162

== ENCOUNTER 2020-03-15 19:40 | Emergency (ER) | payer OTHER ==
[~2020-03-15] VITALS: Ht 167.6 cm; Wt 71.7 kg
[2020-03-15 19:47] VITALS: BP 143/80
--- NOTE | 2020-03-15 19:47 | NUR ---
TO LOBBY AWAITING BED, NO DISTRESS.
--- NOTE | 2020-03-15 23:05 | NUR ---
CALLED FOR BED PLACEMENT. NO ANSWER.
--- NOTE | 2020-03-15 23:10 | NUR ---
CALLED FOR BED PLACEMENT, NO ANSWER.
--- NOTE | 2020-03-15 23:15 | NUR ---
PATIENT LEFT WITHOUT BEING SEEN BY DR. WAHL. NO FURTHER CARE PROVIDED FOR PATIENT.
--- NOTE | 2020-03-15 23:15 | NUR ---
CALLED FOR BED PLACEMENT NO ANSWER.
== END 2020-03-15 23:05 | disposition left against medical advice (07) ==
LOC: MED 19:40
DX: T17.208A Unspecified foreign body in pharynx causing other injury, initial encounter (principal); Z53.21 Procedure and treatment not carried out due to patient leaving prior to being seen by health care provider; X58.XXXA Exposure to other specified factors, initial encounter; Y93.89 Activity, other specified; Y92.89 Other specified places as the place of occurrence of the external cause; Y99.8 Other external cause status

== ENCOUNTER 2020-03-29 20:24 | Emergency (ER) | payer OTHER ==
[~2020-03-29] VITALS: Ht 165.1 cm; Wt 72.6 kg
[2020-03-29] MEDS ORDERED: LORazepam 2 MG/ML VIAL IVP ONE (20:30)
[2020-03-29 20:34] VITALS: BP 144/73
[2020-03-29] MEDS ORDERED: ONDANSETRON 4 MG/2 ML VIAL IVP ONE (20:40)
[2020-03-29] MEDS ORDERED: NACL 0.9% 1,000 ML IV ONE (20:50)
[2020-03-29 21:20] LABS: CARBON DIOXIDE 21.5 mmol/L (21-32); CREATININE 0.8 mg/dL (0.6-1.3); POTASSIUM 3.5 mmol/L (3.5-5.1)
[2020-03-29 21:41] VITALS: BP 139/75
== END 2020-03-29 22:58 | disposition home or self-care (01) ==
LOC: MED 20:24
DX: G40.509 Epileptic seizures related to external causes, not intractable, without status epilepticus (principal); Z79.899 Other long term (current) drug therapy
CPT/HCPCS: 36415; 80048; 96374; 96375; 99284; J2060; J2405; J7030

== ENCOUNTER 2020-05-30 14:14 | Emergency (ER) | payer OTHER ==
[~2020-05-30] VITALS: Ht 170.2 cm; Wt 83.9 kg
[2020-05-30 14:16] VITALS: BP 131/80
[2020-05-30] MEDS ORDERED: LORazepam 2 MG/ML VIAL IVP ONE (14:30)
[2020-05-30] MEDS ORDERED: KETOROLAC 30 MG/ML VIAL IVP ONE (15:10)
[2020-05-30 15:47] LABS: BASOPHILS # (AUTO) 0.1 K/uL (0.00-0.22); BASOPHILS % (AUTO) 0.5 % (0.0-2.0); EOSINOPHILS # (AUTO) 0.6 K/uL (0-0.4); EOSINOPHILS % (AUTO) 4.9 % (0.0-4.0); HEMATOCRIT 41.8 % (36-48); HEMOGLOBIN 13.8 g/dL (12.0-16.0); LYMPHOCYTES # (AUTO) 1.4 K/uL (2.5-16.5); LYMPHOCYTES % (AUTO) 12.3 % (20.5-51.1); MEAN CORPUSCULAR HEMOGLOBIN 30 pg (27-31); MEAN CORPUSCULAR HGB CONC 33 g/dL (33-37); MEAN CORPUSCULAR VOLUME 91.3 fL (80-94); MONOCYTES # (AUTO) 0.9 K/uL (0.8-1.0); MONOCYTES % (AUTO) 7.5 % (1.7-9.3); NEUTROPHILS # (AUTO) 8.6 K/uL (1.8-7.7); NEUTROPHILS % (AUTO) 74.8 % (42.2-75.2); PLATELET COUNT (AUTO) 242 K/uL (140-450); RED BLOOD CELL COUNT(AUTO) 4.57 MIL/uL (4.20-5.40); RED CELL DISTRIBUTION WIDTH 12.9 % (11.6-13.7); WHITE BLOOD COUNT (AUTO) 11.5 K/uL (4.5-11.0)
[2020-05-30 16:33] LABS: ALBUMIN 3.5 g/dL (3.4-5.0); ANION GAP 11.8 (8-16); ASPARTATE AMINOTRANSFERASE 12 U/L (15-37); CARBON DIOXIDE 24.7 mmol/L (21-32); CHLORIDE 104 mmol/L (98-107); CREATININE 0.6 mg/dL (0.6-1.3); GFR ARICAN-AMERICAN 164 mL/min (>90); GLUCOSE 99 mg/dL (74-106); POTASSIUM 3.5 mmol/L (3.5-5.1); SODIUM SERUM 137 mmol/L (136-145); TOTAL BILIRUBIN 0.4 mg/dL (0.0-1.0); UREA NITROGEN, BLOOD 4 mg/dL (7-18)
[2020-05-30 17:31] VITALS: BP 131/80
[2020-05-30 21:21] LABS: BARBITURATE, URINE NEGATIVE ng/ml (NEG <=200); BENZODIAZEPINE, URINE NEGATIVE ng/mL (NEG <=200); CANNABINOID, URINE NEGATIVE ng/mL (NEG <=50); COCAINE, URINE NEGATIVE ng/mL (NEG <=300); OPIATE, URINE NEGATIVE ng/mL (NEG <=2000); PHENCYCLIDINE SCREEN,URINE NEGATIVE ng/mL (NEG <=25)
== END 2020-05-30 17:30 | disposition home or self-care (01) ==
LOC: MED 14:14
DX: R56.9 Unspecified convulsions (principal); Z79.899 Other long term (current) drug therapy
CPT/HCPCS: 36415; 80053; 80305; 81002; 81025; 85025; 96374; 96375; 99284; G0482; J1885; J2060

== ENCOUNTER 2022-01-31 13:55 | Emergency (ER) | payer OTHER ==
[~2022-01-31] VITALS: Ht 165.1 cm; Wt 96.6 kg
[2022-01-31 14:00] VITALS: BP 130/94
--- NOTE | 2022-01-31 14:12 | NUR ---
DR CHAVIRA EVALUATING PT AT THIS TIME
--- NOTE | 2022-01-31 14:12 | NUR ---
Neptali garay in [facility] - 01/31/22 at [email or web address] CHAVIRA AT BEDSIDE EVALUATING PT
[2022-01-31] MEDS ORDERED: LEVE750T3 PO (14:18)
--- NOTE | 2022-01-31 14:21 | NUR ---
PT SEEN BY DR CHAVIRA, NO NURSING INTERVENTIONS PROVIDED
--- NOTE | 2022-01-31 14:22 | NUR ---
Patient discharged with v/s stable. Written and verbal after care instructions MEDICINE REFILL AT THE ER given and explained. Patient alert, oriented and verbalized understanding of instructions. Ambulatory with steady gait. All questions addressed prior to discharge. ID band removed. Patient advised to follow up with PMD. Rx of KEPPRA given. Patient educated on indication of medication including possible reaction and side effects. Opportunity to ask questions provided and answered.
== END 2022-01-31 14:22 | disposition home or self-care (01) ==
LOC: MED 13:55
DX: R56.9 Unspecified convulsions (principal); Z76.0 Encounter for issue of repeat prescription
CPT/HCPCS: 99281

== ENCOUNTER 2022-06-12 08:05 | Emergency (ER) | payer OTHER ==
[~2022-06-12] VITALS: Ht 165.1 cm; Wt 90.7 kg
[~2022-06-12 08:05] MED LIST changes: +LEVE750T3 PO
[2022-06-12 08:08] VITALS: BP 130/95
--- NOTE | 2022-06-12 08:08 | NUR ---
pt biba to bed 02 at this time
[2022-06-12] MEDS ORDERED: levETIRAcetam 500 MG TAB PO ONE (08:10)
[2022-06-12 09:23] LABS: BASOPHILS # (AUTO) 0.1 K/uL (0.00-0.22); BASOPHILS % (AUTO) 0.6 % (0.0-2.0); EOSINOPHILS # (AUTO) 0.5 K/uL (0-0.4); EOSINOPHILS % (AUTO) 4.6 % (0.0-4.0); HEMATOCRIT 42.4 % (36-48); HEMOGLOBIN 13.9 g/dL (12.0-16.0); LYMPHOCYTES # (AUTO) 1.8 K/uL (2.5-16.5); LYMPHOCYTES % (AUTO) 15.6 % (20.5-51.1); MEAN CORPUSCULAR HEMOGLOBIN 27 pg (27-31); MEAN CORPUSCULAR HGB CONC 33 g/dL (33-37); MEAN CORPUSCULAR VOLUME 83.4 fL (80-94); MONOCYTES # (AUTO) 0.5 K/uL (0.8-1.0); MONOCYTES % (AUTO) 4.1 % (1.7-9.3); NEUTROPHILS # (AUTO) 8.6 K/uL (1.8-7.7); NEUTROPHILS % (AUTO) 75.1 % (42.2-75.2); PLATELET COUNT (AUTO) 335 K/uL (140-450); RED BLOOD CELL COUNT(AUTO) 5.08 MIL/uL (4.20-5.40); RED CELL DISTRIBUTION WIDTH 15.8 % (11.6-13.7); WHITE BLOOD COUNT (AUTO) 11.4 K/uL (4.8-10.8)
[2022-06-12 09:26] LABS: ANION GAP 14.5 (8-16); CARBON DIOXIDE 24.5 mmol/L (21-32); CREATININE 0.7 mg/dL (0.6-1.3)
[2022-06-12] MEDS ORDERED: ACETAMINOPHEN 325 MG TAB PO ONE (09:35)
[2022-06-12] MEDS ORDERED: LEVE750T3 PO (09:57)
--- NOTE | 2022-06-12 10:31 | NUR ---
pt sleeping, will be dc home, mother has been contacted, coming to pick her up pt a/o times 4, nad, ambulatory and steady gait, nsr on cm o2 sat 99% ra, sr up times 2.
[2022-06-12 11:08] VITALS: BP 126/77
--- NOTE | 2022-06-12 11:09 | NUR ---
pt dc'd home w mother, Patient discharged with v/s stable. Written and verbal after care instructions given and explained. Patient verbalized understanding. Ambulatory with steady gait. All questions addressed prior to discharge. Advised to follow up with PMD.
== END 2022-06-12 11:08 | disposition home or self-care (01) ==
LOC: MED 08:05
DX: S09.90XA Unspecified injury of head, initial encounter (principal); R56.9 Unspecified convulsions; W18.30XA Fall on same level, unspecified, initial encounter; Y93.89 Activity, other specified; Y92.89 Other specified places as the place of occurrence of the external cause; Y99.8 Other external cause status
CPT/HCPCS: 36415; 70450; 80048; 81025; 85025; 93005; 99285

== ENCOUNTER 2022-07-30 12:55 | Emergency (ER) | payer OTHER ==
[~2022-07-30] VITALS: Ht 165.1 cm; Wt 117.9 kg
[2022-07-30 12:59] VITALS: BP 130/90
--- NOTE | 2022-07-30 13:00 | NUR ---
BIBA TO ROOM 5
--- NOTE | 2022-07-30 13:05 | NUR ---
21YO FEMALE PT BIBA FROM HOME C/O SEIZURE PER [facility], PT HAD TONIC CLONIC SEIZURE LASTING ABOUT 1MIN . WITNESSED BY MOM WHO STATES PT WAS IN BED DURING EPISODE . -HEAD INJURY, -ORAL TRAUMA, -INCONTINENCE. AT ARRIVAL PT AAOX4 W/ NEW ONSET OF NAUSEA AND HEADACHE. STATES BEING COMPLIANT WITH RX KEPPRA AND LAMICTAL. DENIES N/V/D, CHEST PAIN, SOB , FEVER OR CHILLS. RESPIRATIONS EVEN AND UNLABORED. 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 BED AT LOWEST POSITION, BED RAILS UPX2. SEIZURE PADS IN PLACE. HX:SEIZURE NKA
--- NOTE | 2022-07-30 13:05 | NUR ---
Note undone in EDM - 07/30/22 at 1409 by [email or web address] 21YO FEMALE PT BIBA FROM HOME C/O SEIZURE . PER [facility], PT HAD 1MIN TONIC CLONIC SEIZURE WHILE LAYING IN BED : WITNESSED BY MOM. -HEAD INJURY, -ORAL TRAUMA, -INCONTINENCE. AT ARRIVAL PT AAOX4 AND W/ NEW ONSET OF NAUSEA AND HEADACHE. STATES BEING COMPLIANT WITH RX KEPPRA AND LAMICTAL. RESPIRATIONS EVEN AND UNLABORED. ON ASSEMBLING MACHINE OPERATOR. BED AT LOWEST POSITION, BED RAILS UPX2. SEIZURE PADS IN PLACE. HX:SEIZURE NKA
[2022-07-30] MEDS ORDERED: ONDANSETRON 4 MG ODT ONE (13:24)
[2022-07-30] MEDS ORDERED: ACETAMINOPHEN 325 MG TAB PO ONE (13:35)
[2022-07-30] MEDS ORDERED: ONDANSETRON 4 MG ODT PO ONE (13:40)
[2022-07-30 15:46] VITALS: BP 120/79
--- NOTE | 2022-07-30 15:46 | NUR ---
Patient discharged with v/s stable. Written and verbal after care instructions FOR SEIZURE given and explained. Patient verbalized understanding. Ambulatory with steady gait. All questions addressed prior to discharge. Advised to follow up with PMD. UBER PROVIDED
--- NOTE | 2022-07-30 15:47 | NUR ---
The patient's care was reviewed and supervised by Jasmin Lind RN.
== END 2022-07-30 15:46 | disposition home or self-care (01) ==
LOC: MED 12:55
DX: R56.9 Unspecified convulsions (principal); F17.210 Nicotine dependence, cigarettes, uncomplicated; Z72.89 Other problems related to lifestyle
CPT/HCPCS: 99285; Q0162

== ENCOUNTER 2022-08-28 14:32 | Emergency (ER) | payer OTHER ==
[~2022-08-28] VITALS: Ht 157.5 cm; Wt 81.6 kg
[2022-08-28 14:36] VITALS: BP 133/75
--- NOTE | 2022-08-28 14:39 | NUR ---
PT RECEIVED, CARE ASSUMED. PT A/OX4. PT BIB EMS FROM HOME FOR EVALUATION OF SZ ACTIVITY. PLACED ON SEIZURE PRECAUTION, INSERTED 22G IV TO RIGHT HAND, COLLECTED URINE, CONNECTED TO TELE MONITOR: ST 101. AWAITING TO BE SEEN BY
[2022-08-28] MEDS ORDERED: ONDANSETRON 4 MG ODT PO ONE (15:05)
[2022-08-28 15:18] LABS: APPEARANCE,URINE CLEAR (CLEAR); BILIRUBIN,URINE NEGATIVE (NEGATIVE); BLOOD, URINE NEGATIVE (NEGATIVE); COLOR,URINE YELLOW (YELLOW); LEUKOCYTE ESTERASE ,URINE NEGATIVE (NEGATIVE); NITRITE, URINE NEGATIVE (NEGATIVE); UGLUCOSE NEGATIVE (NEGATIVE)
[2022-08-28 15:38] LABS: RBC,URINE 0-5 /HPF (0-5); WBC,URINE 0-5 /HPF (0-5)
[2022-08-28 15:39] LABS: TRICHOMONAS,URINE None Seen /HPF (None Seen); YEAST,URINE None Seen /HPF (None Seen)
[2022-08-28] MEDS ORDERED: ONDA-188 SL (16:05)
[2022-08-28 16:28] VITALS: BP 129/85
== END 2022-08-28 16:29 | disposition home or self-care (01) ==
LOC: MED 14:32
DX: O26.899 Other specified pregnancy related conditions, unspecified trimester (principal); O21.8 Other vomiting complicating pregnancy; R56.9 Unspecified convulsions; Z79.899 Other long term (current) drug therapy
CPT/HCPCS: 81001; 81025; 99283; Q0162

== ENCOUNTER 2022-10-05 18:04 | Emergency (ER) | payer OTHER ==
[~2022-10-05] VITALS: Ht 165.1 cm; Wt 90.7 kg
[~2022-10-05 18:04] MED LIST changes: +ONDA-188 SL
--- NOTE | 2022-10-05 18:07 | NUR ---
PATIENT BIBA TO BED 11.
[2022-10-05 18:08] VITALS: BP 137/80
[2022-10-05] MEDS ORDERED: levETIRAcetam 1,000 MG in NACL 0.9% 100 ML IV ONE (18:10)
--- NOTE | 2022-10-05 18:13 | NUR ---
[place] [employer] AT BEDSIDE
--- NOTE | 2022-10-05 18:31 | NUR ---
PT TAKEN TO CT VIA DAYNA
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
--- NOTE | 2022-10-05 19:23 | NUR ---
Pt report given to MAY RN. Transfer of care at this time.
[2022-10-05 19:24] LABS: BASOPHILS # (AUTO) 0.1 K/uL (0.00-0.22); BASOPHILS % (AUTO) 0.4 % (0.0-2.0); EOSINOPHILS # (AUTO) 0.3 K/uL (0-0.4); HEMATOCRIT 39.1 % (36-48); HEMOGLOBIN 12.9 g/dL (12.0-16.0); LYMPHOCYTES # (AUTO) 1.9 K/uL (2.5-16.5); LYMPHOCYTES % (AUTO) 12.5 % (20.5-51.1); MEAN CORPUSCULAR HEMOGLOBIN 29 pg (27-31); MEAN CORPUSCULAR HGB CONC 33 g/dL (33-37); MEAN CORPUSCULAR VOLUME 88.1 fL (80-94); MONOCYTES # (AUTO) 0.6 K/uL (0.8-1.0); MONOCYTES % (AUTO) 4.3 % (1.7-9.3); NEUTROPHILS # (AUTO) 11.9 K/uL (1.8-7.7); NEUTROPHILS % (AUTO) 80.8 % (42.2-75.2); PLATELET COUNT (AUTO) 389 K/uL (140-450); RED BLOOD CELL COUNT(AUTO) 4.44 MIL/uL (4.20-5.40); WHITE BLOOD COUNT (AUTO) 14.8 K/uL (4.8-10.8)
[2022-10-05] MEDS ORDERED: HYDROcodone/APAP 5/325 MG 1 TAB TAB PO ONE (19:55)
[2022-10-05] MEDS ORDERED: levETIRAcetam 500 MG TAB PO ONE (19:55)
[2022-10-05 20:16] LABS: ANION GAP 14.2 (8-16); CARBON DIOXIDE 24.7 mmol/L (21-32); CREATININE 0.9 mg/dL (0.6-1.3); POTASSIUM 3.9 mmol/L (3.5-5.1)
--- NOTE | 2022-10-05 20:30 | NUR ---
The patient's care was reviewed and supervised by Azalea Rai RN.
[2022-10-05] MEDS ORDERED: IBUP-1842 PO (22:35)
[2022-10-05] MEDS ORDERED: AMOX-1230 PO (22:35)
== END 2022-10-05 20:28 | disposition home or self-care (01) ==
LOC: MED 18:04
DX: G40.909 Epilepsy, unspecified, not intractable, without status epilepticus (principal); R51.9 Headache, unspecified; M54.2 Cervicalgia; Z79.899 Other long term (current) drug therapy; V89.2XXA Person injured in unspecified motor-vehicle accident, traffic, initial encounter; Y93.89 Activity, other specified; Y92.410 Unspecified street and highway as the place of occurrence of the external cause; Y99.8 Other external cause status
CPT/HCPCS: 36415; 70450; 71045; 72125; 80048; 85025; 93005; 99285; J1953; Q0092

== ENCOUNTER 2022-11-07 22:56 | Emergency (ER) | payer OTHER ==
[~2022-11-07] VITALS: Ht 160 cm; Wt 101.7 kg
[~2022-11-07 22:56] MED LIST changes: +AMOX-1230 PO; +IBUP-1842 PO
[2022-11-07 23:00] VITALS: BP 137/62
--- NOTE | 2022-11-07 23:00 | NUR ---
TO BED AMBULATORY
--- NOTE | 2022-11-08 00:25 | NUR ---
Pt refusing care, stating she wants to leave, and walking out to lobby. Mother with patient in lobby accompanying patient. AMA formed signed by both mother and daughter.
[2022-11-08 00:31] VITALS: BP 137/62
--- NOTE | 2022-11-08 00:31 | NUR ---
Patient does not wish to proceed with medical care. Patient verbalizes understanding of risks involved leaving against medical advice. Patient has signed AMA form.
== END 2022-11-08 00:31 | disposition left against medical advice (07) ==
LOC: MED 22:56
DX: R53.1 Weakness (principal); Z86.69 Personal history of other diseases of the nervous system and sense organs; Z79.899 Other long term (current) drug therapy; Z79.1 Long term (current) use of non-steroidal anti-inflammatories (NSAID); Z79.2 Long term (current) use of antibiotics
CPT/HCPCS: 99281

== ENCOUNTER 2022-11-11 06:04 | Inpatient (IN) | payer OTHER ==
[2022-11-11] VITALS (8 sets, daily range): BP systolic 87–120; BP diastolic 37–72
[~2022-11-11] VITALS: Ht 162.6 cm; Wt 104.8 kg
--- NOTE | 2022-11-11 06:04 | NUR ---
0600 PT TO BED 10 ALS AND RT AT BEDSIDE.
--- NOTE | 2022-11-11 06:05 | NUR ---
PER ERMD FLAMMIA PULL ETOMIDATE 20MG IVP AND SUCCINYLCHOLINE 100MG, PT WAS NOT IN SYSTEM YET THEREFORE PULLED UNDER QIANA LOMELI.
--- NOTE | 2022-11-11 06:13 | NUR ---
Neptali garay in [facility] - 11/11/22 at 0613 by POOJA XRAY AT BEDSIDE
[2022-11-11] MEDS ORDERED: ETOMIDATE 20 MG/10 ML VIAL IVP ONE (06:15)
[2022-11-11] MEDS ORDERED: SUCCINYLCHOLINE CHLORIDE 200 MG/10 ML VIAL IVP ONE (06:15)
[2022-11-11] MEDS ORDERED: PROPOFOL 1000 MG/100 ML PREMIX 100 ML IV ONE ×3 (06:16→11:14)
--- NOTE | 2022-11-11 06:17 | NUR ---
22YO F BIBA FROM HOME WITH C/C OF SEIZURE. PT WAS FOUND BY FAMILY THIS MORNING SEIZING. NO TRAUMA OBSERVED. PT GIVEN 5MG VERSED IM WELL 2.5MG GIVEN IVP X2 WITH A TOTAL OF 10MG GIVEN. PER EMS PT ASPIRATED. RALES AUSCULTATED. PT IS BEING BAGGED UPON ARRIVAL. PRESENTS WITH 20G TO RT FOOT. LAST SEIZURE PRIOR TO THIS WAS 1 MONTH AGO HX:SEIZURES NKA
--- NOTE | 2022-11-11 06:17 | NUR ---
XRAY AT BEDSIDE.
--- NOTE | 2022-11-11 06:23 | NUR ---
0608 ETOMIDATE 20MG GIVEN IVP FOR INTUBATION 0609 SUCC 100MG IVP GIVEN FOR INTUBATION 0612 INUTUBATED 22@TEETH 0615 PT ON VENT
[2022-11-11] MEDS ORDERED: LEVE250T1 PO (06:29)
--- NOTE | 2022-11-11 06:29 | NUR ---
Patient resting in bed with eyes cloesd, chest rise and fall symmetrical, on mechanical vent, no s/s of pain or s/s of distress.
[2022-11-11] MEDS ORDERED: levETIRAcetam 4,500 MG in NACL 0.9% 100 ML IV ONE (06:30)
[2022-11-11] MEDS ORDERED: NACL 0.9% 1,000 ML IV ONE ×2 (06:30→09:10)
--- NOTE | 2022-11-11 06:35 | NUR ---
Patient resting in bed eyes closed, chest rise and fall symmetrical on ventilator, no s/s of distress. Addendum: 11/11/22 at 0636 by [email or web address] Patient resting in bed eyes closed, chest rise and fall symmetrical on ventilator, no s/s of distress, on monitor.
[2022-11-11] MEDS ORDERED: fentaNYL citrate 0.05 MG/ML VIAL ONE (06:58)
[2022-11-11] MEDS ORDERED: fentaNYL citrate 0.05 MG/ML VIAL IVP PRN ×2 (07:15→07:45)
--- NOTE | 2022-11-11 07:25 | NUR ---
Change of shift report given to AM shift nurse Chuck RN. AM shift nurse Chuck RN verbalized understanding of report, no further questions.
[2022-11-11] MEDS ORDERED: LEVOFLOXACIN 500 MG/D5W PREMIX 100 ML IV ONE ×2 (07:30→10:17)
--- NOTE | 2022-11-11 08:22 | NUR ---
PT SUCTIONED OBTAINED MODERATE AMOUNT OF PINK FROTHY SECRETIONS. ABG ATTEMPTED BY MYSELF AND WOOL PULLERAlan CORBIN WITHOUT SUCCESS PT MOVING AROUND. PT EXTREMELY AGITATED NURSE BEDSIDE AND AWARE OF PT STATUS.
[2022-11-11] MEDS ORDERED: NACL 0.9% IV SCH (08:30)
[2022-11-11] MEDS ORDERED: LEVETIRACETAM IV SCH (08:30)
[2022-11-11] MEDS ORDERED: DEXMEDETOMIDINE HCL 400 MCG in NACL 0.9% 96 ML IV PRN ×2 (09:10→09:50)
[2022-11-11] MEDS ORDERED: DEXMEDETOMIDINE HCL 400 MCG in DEXTROSE 5% 96 ML IV PRN (09:27)
[2022-11-11] MEDS ORDERED: MAG SULF 2000 MG/WATER PREMIX 50 ML IV PRN (09:45)
[2022-11-11] MEDS ORDERED: HYDROcodone/APAP 5/325 MG 1 TAB TAB PO PRN (09:45)
[2022-11-11] MEDS: NACL 0.9% 1,000 ML IV SCH ×2 (09:45→22:26)
[2022-11-11] MEDS ORDERED: MORPHINE SULFATE 4 MG/ML SYR IVP PRN (09:45)
[2022-11-11] MEDS ORDERED: ACETAMINOPHEN 325 MG TAB PO PRN (09:45)
[2022-11-11] MEDS ORDERED: MAGNESIUM OXIDE 400 MG TAB PO PRN (09:45)
[2022-11-11] MEDS ORDERED: KCL 20 MEQ IN 100 mL PREMIX 200 ML IV PRN (09:45)
[2022-11-11 09:49] LABS: BASOPHILS % (AUTO) 0.1 % (0.0-2.0); EOSINOPHILS # (AUTO) 0.1 K/uL (0-0.4); EOSINOPHILS % (AUTO) 0.9 % (0.0-4.0); HEMATOCRIT 36.5 % (36-48); HEMOGLOBIN 11.7 g/dL (12.0-16.0); LYMPHOCYTES # (AUTO) 1.5 K/uL (2.5-16.5); LYMPHOCYTES % (AUTO) 17.2 % (20.5-51.1); MEAN CORPUSCULAR HEMOGLOBIN 29 pg (27-31); MEAN CORPUSCULAR HGB CONC 32 g/dL (33-37); MONOCYTES # (AUTO) 0.1 K/uL (0.8-1.0); MONOCYTES % (AUTO) 1.3 % (1.7-9.3); NEUTROPHILS # (AUTO) 6.9 K/uL (1.8-7.7); NEUTROPHILS % (AUTO) 80.5 % (42.2-75.2); PLATELET COUNT (AUTO) 335 K/uL (140-450); RED BLOOD CELL COUNT(AUTO) 4.06 MIL/uL (4.20-5.40); RED CELL DISTRIBUTION WIDTH 17.1 % (11.6-13.7); WHITE BLOOD COUNT (AUTO) 8.6 K/uL (4.8-10.8)
[2022-11-11] MEDS: PANTOPRAZOLE 40 MG INJ VIAL IVP SCH (09:50)
[2022-11-11] MEDS ORDERED: PROPOFOL 1000 MG/100 ML PREMIX 100 ML IV PRN (09:55)
[2022-11-11 10:04] LABS: ALBUMIN 3.4 g/dL (3.4-5.0); ANION GAP 12.3 (8-16); CARBON DIOXIDE 24.3 mmol/L (21-32); CREATININE 0.6 mg/dL (0.6-1.3); POTASSIUM 3.6 mmol/L (3.5-5.1); TOTAL BILIRUBIN 0.4 mg/dL (0.0-1.0)
[2022-11-11 10:05] LABS: ACETAMINOPHEN 0.6 ug/ml (10-30)
[2022-11-11 10:08] LABS: SALICYLATE < 2.8 mg/dL (2.8-20.0)
--- NOTE | 2022-11-11 10:10 | NUR ---
DR. KENNEDY EVALUATING PATIENT BEDSIDE
[2022-11-11] MEDS ORDERED: LORazepam 2 MG/ML VIAL IVP PRN (10:15)
[2022-11-11] MEDS ORDERED: fentaNYL citrate 1 MG in NACL 0.9% 80 ML IV PRN (10:15)
[2022-11-11 10:41] LABS: APPEARANCE,URINE CLEAR (CLEAR); BILIRUBIN,URINE NEGATIVE (NEGATIVE); BLOOD, URINE NEGATIVE (NEGATIVE); COLOR,URINE YELLOW (YELLOW); LEUKOCYTE ESTERASE ,URINE NEGATIVE (NEGATIVE); NITRITE, URINE NEGATIVE (NEGATIVE); UGLUCOSE NEGATIVE (NEGATIVE)
--- NOTE | 2022-11-11 10:41 | NUR ---
PT RESTLESS, SEDATION ORDERED. CLOTHES REMOVED, GODOY CATHETER INSERTED, NO TRAUMA. NOSKIN ISSUES NOTED, REPOSITIONED TO SIDES
[2022-11-11 10:55] LABS: BARBITURATE, URINE NEGATIVE ng/ml (NEG <=200); BENZODIAZEPINE, URINE NEGATIVE ng/mL (NEG <=200); CANNABINOID, URINE NEGATIVE ng/mL (NEG <=50); COCAINE, URINE NEGATIVE ng/mL (NEG <=300); OPIATE, URINE NEGATIVE ng/mL (NEG <=2000); PHENCYCLIDINE SCREEN,URINE NEGATIVE ng/mL (NEG <=25)
[2022-11-11] MEDS: AZITHROMYCIN 500 MG in DEXTROSE 5% 250 ML IV SCH (11:00)
[2022-11-11 12:14] LABS: LIPASE 67 U/L (73-393)
[2022-11-11] MEDS: ALBUTEROL SULFATE/IPRATROPIU 3 ML SOL IH SCH ×2 (13:00→19:09)
--- NOTE | 2022-11-11 14:29 | NUR ---
DR KENNEDY AWARE OF ELEVATED LACTIC ACID LEVEL
--- NOTE | 2022-11-11 15:06 | NUR ---
routine ventilator check performed, pt agitated and irritable causing high peak pressures and elevated heart rate. rn notified.
[2022-11-11] MEDS: MIDAZOLAM MDV 50 MG in NACL 0.9% 40 ML IV PRN (16:21)
[2022-11-11] MEDS: PROPOFOL 1000 MG/100 ML PREMIX 100 ML IV PRN ×3 (16:54→21:12)
--- NOTE | 2022-11-11 18:37 | NUR ---
ON SEDATION MEDS, NO AGITATON NOTED, V/S STABEL AT THIS TIME. REPOSITIONED IN BED. TICKER WIRER AT BEDSIDE
--- NOTE | 2022-11-11 19:24 | NUR ---
VERSED DRIP STILL INFUSING BAG #1. SAP BUSINESS OBJECTS DEVELOPER PICKED UP BAG #2 AND BROUGHT IT TO ICU LOCKBOX. ENDORSED TO MARY JANE CABA PM SHIFT
--- NOTE | 2022-11-11 19:30 | NUR ---
Patient received on bed lying comfortably and asleep. No acute distress. No signs of pain or discomfort. Respirations even and unlabored.
--- NOTE | 2022-11-11 20:25 | NUR ---
Called ICU to give report and was told ICU cannot accept the patient as they are full staffed. Will notify the Charge Nurse.
--- NOTE | 2022-11-11 20:47 | NUR ---
Neptali hidalgosoto in [facility] - 11/11/22 at 2048 by [email or web address] Patient was transported back to bed 10 via gurney by Radiologist from CT scan.
[2022-11-11] MEDS ORDERED: levETIRAcetam 100 MG/ML VIAL IV ONE (21:13)
[2022-11-11] MEDS: levETIRAcetam 1,000 MG in NACL 0.9% 100 ML IV SCH (21:16)
--- NOTE | 2022-11-11 22:29 | NUR ---
Called ICU to give report. Receiving nurse, November, said to call back after 5 minutes.
[2022-11-12] VITALS (29 sets, daily range): BP systolic 92–160; BP diastolic 32–92
[2022-11-12] MEDS: NACL 0.9% 1,000 ML IV SCH ×3 (00:27→01:50)
[2022-11-12] MEDS ORDERED: NOREPINEPHRINE 4 MG/4 ML VIAL IV ONE (01:07)
[2022-11-12] MEDS: NOREPINEPHRINE 4 MG in DEXTROSE 5% 250 ML IV PRN ×2 (01:10→14:20)
[2022-11-12] MEDS: PROPOFOL 1000 MG/100 ML PREMIX 100 ML IV PRN ×8 (01:30→22:50)
[2022-11-12] MEDS ORDERED: VASOPRESSIN 20 UNITS in NACL 0.9% 250 ML IV SCH (02:30)
[2022-11-12] MEDS ORDERED: MAG SULF 2000 MG/WATER PREMIX 50 ML IV PRN (02:35)
[2022-11-12] MEDS ORDERED: KCL 20 MEQ IN 100 mL PREMIX 200 ML IV PRN (02:35)
[2022-11-12] MEDS: ALBUTEROL SULFATE/IPRATROPIU 3 ML SOL IH SCH ×4 (04:11→19:29)
--- NOTE | 2022-11-12 06:00 | NUR ---
Admitted this 22 y. o. female per gabino for c/c of Seizures. No seizures @ this time. Sedated on Propofol and Versed Drips with shahzad. soft wrist restraints in place to prevent extubation. On ETT to ventilator set @ AC 20 TV 400 FiO2 50% PEEP +5 w/ W5Gtj=095% SR to ST on the monitor. Admission history and assessment done. POC initiated. SBP 70s; Dr. Pepe Garcia made aware with orders for Levophed Drip to keep SBP>90mmHg noted and carried out; Levo. @ 5 mcg/min @ this time. Will cont. to monitor cardiac, neuro and resp status.
--- NOTE | 2022-11-12 07:25 | NUR ---
REPORT RECEIVED FROM GEE GERTRUDIS, ALL CARES ASSUMED. PT INTUBATED, SEDATED. ETT TO VENT ACVC 20, 400, 35%, 8. GODOY CATHETER DRAINING YELLOW URINE TO GRAVITY. BED IN LOW AND LOCKED POSITION.
--- NOTE | 2022-11-12 07:45 | NUR ---
RECEIVED PT ON ACVC 400,F20, +15, 40%. SATURATION WAS 100%. BREATH SOUNDS WERE CLEAR/ DIMINISHED. BLOOD PRESSURE WAS STABLE. HEART RATE IN THE 90S. TITRATED FIO2 TO 35% AND PEEP +8. WAITED FOR 10 MINUTES. SATURATION 98%. BLOOD PRESSURE IS STABLE. HEART RATE IN THE HIGH 90S. VENT WHEELS ARE LOCKED PLUGGED INTO RED OUTLET, AMBUBAG AT BEDSIDE, ALARMS ARE SET AND AUDIBLE. NO DISTRESS NOTED. WILL CONTINUE TO MONITOR.
[2022-11-12] MEDS: MIDAZOLAM MDV 50 MG in NACL 0.9% 40 ML IV PRN ×2 (08:22→14:17)
--- NOTE | 2022-11-12 08:30 | NUR ---
16 FR OG TUBE INSERTED, CONFIRMED PLACEMENT BY AUSCULTATION. CHEST XRAY ORDERED FOR FINAL CONFIRMATION.
[2022-11-12] MEDS: levETIRAcetam 1,000 MG in NACL 0.9% 100 ML IV SCH ×2 (08:31→21:43)
[2022-11-12] MEDS: PANTOPRAZOLE 40 MG INJ VIAL IVP SCH (08:31)
[2022-11-12 09:20] LABS: BASOPHILS % (AUTO) 0.2 % (0.0-2.0); EOSINOPHILS # (AUTO) 0.1 K/uL (0-0.4); EOSINOPHILS % (AUTO) 0.5 % (0.0-4.0); HEMATOCRIT 32.6 % (36-48); HEMOGLOBIN 10.6 g/dL (12.0-16.0); LYMPHOCYTES # (AUTO) 2.4 K/uL (2.5-16.5); LYMPHOCYTES % (AUTO) 13.3 % (20.5-51.1); MEAN CORPUSCULAR HEMOGLOBIN 29 pg (27-31); MEAN CORPUSCULAR HGB CONC 33 g/dL (33-37); MEAN CORPUSCULAR VOLUME 88.9 fL (80-94); MONOCYTES # (AUTO) 0.7 K/uL (0.8-1.0); MONOCYTES % (AUTO) 3.7 % (1.7-9.3); NEUTROPHILS # (AUTO) 14.9 K/uL (1.8-7.7); NEUTROPHILS % (AUTO) 82.3 % (42.2-75.2); PLATELET COUNT (AUTO) 281 K/uL (140-450); RED BLOOD CELL COUNT(AUTO) 3.67 MIL/uL (4.20-5.40); RED CELL DISTRIBUTION WIDTH 17.1 % (11.6-13.7)
--- NOTE | 2022-11-12 10:00 | NUR ---
DC PLANNING ADMITTED A 22 YEAR OLD FEMALE PATIENT FOR SEIZURE DISORDER S/P EPILEPTICUS ,ACUTE HYPOXIC RESPIRATORY FAILURE AND ASPIRATION PNEUMONITIS. WITH HX OF MULTIPLE SEIZURES IN THE PAST.INTUBATED.ON LEVOPHED, PROPOFOL,VERSED. STARTED ON ABX KEPPRA,AZITHROMYCIN AND CEFTRIAXONE.PULMO AND NEUROLOGY FOLLOWING.CM TO FOLLOW. Addendum: 11/16/22 at 1110 by JUNI WATTS CM DC PLANNING EXTUBATED 11/15 ON ROOM AIR 11/16.NO SEIZURES DOCUMENTED.OFF LEVOPHED, PROPOFOL.STARTED ON ATIVAN PRN.VERSED DRIP HELD.CONTINUE KEPPRA.NEUROLOGY AND PULMO FOLLOWING.CM TO FOLLOW Addendum: 11/18/22 at 1657 by Alma Delia Kim RN DC PLANNING: PATIENT GOT ACCEPT BY [facility] [phone] WILL START THE CARE TOMORROW 11/19/21 NOTIFIED NURSE BRYCE PATIENT CAN BE DISCHARGED HOME WITH HOME HEALTH FOR PHYSICAL THERAPY. CM TO FOLLOW
[2022-11-12 10:02] LABS: ALBUMIN 3.2 g/dL (3.4-5.0); ANION GAP 10.6 (8-16); CARBON DIOXIDE 24.5 mmol/L (21-32); CREATININE 0.7 mg/dL (0.6-1.3); POTASSIUM 3.1 mmol/L (3.5-5.1); TOTAL BILIRUBIN 0.3 mg/dL (0.0-1.0)
--- NOTE | 2022-11-12 10:03 | NUR ---
PATIENT HAS BEEN SCREENED AND CATEGORIZED HIGH NUTRITION RISK. PATIENT WILL BE SEEN WITHIN 1-2 DAYS OF ADMISSION. REFERRAL RECEIVED FOR INTUBATION [address]
--- NOTE | 2022-11-12 11:02 | NUR ---
11/12/22 RD INITIAL ASSESSMENT COMPLETED PLEASE REFER TO NUTRITION ASSESSMENT UNDER CARE ACTIVITY FOR ESTIMATED NUTRITIONAL NEEDS. 1. WHEN/IF MEDICALLY APPROPRIATE TO INITIATE TF, RECOMMEND JEVITY 1.2 WITH A GOAL RATE 40ML/HR -FWF: 150ML Q4H OR PER MD -START AT 10ML/HR AND INCREASE BY 10ML Q4H TOLERATED UNTIL THE GOAL IS REACHED -WITH THE CURRENT PROPOFOL RATE, PT WILL RECEIVE 1942KCAL, 53G PROTEIN AND 1675ML FREE WATER, MEETING 100% OF ESTIMATED KCAL AND 80% OF ESTIMATED PROTEIN NEEDS; ADEQUATE -IF PT OFF PROPOFOL, RECOMMEND INCREASING THE TF RATE TO 60ML/HR TO MEET 100% OF ESTIMATED NEEDS 2. IF EXTUBATED, RECOMMEND STARTING WITH CLEAR LIQUID DIET AND GRADUALLY ADVANCING TO REGULAR DIET TOLERATED 3. RD TO FOLLOW-UP 2-3 DAYS, HIGH RISK [address]
[2022-11-12] MEDS: AZITHROMYCIN 500 MG in DEXTROSE 5% 250 ML IV SCH (11:40)
[2022-11-12] MEDS: POTASSIUM CHLORIDE 10 MEQ TABER PO PRN (13:36)
--- NOTE | 2022-11-12 13:50 | NUR ---
SBAR REPORT GIVEN TO CLAUDY CABA, ALL CARES ENDORSED.
--- NOTE | 2022-11-12 13:56 | NUR ---
RECEIVED BEDSIDE REPORT FROM MARTINA RN FOR CONTINUITY OF CARE .
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
--- NOTE | 2022-11-12 19:15 | NUR ---
ENDORSED TO STRUCTURAL MILL SUPERVISOR NOVEMBER RN FOR CONTINUITY OF CARE. ALL QUESTION ANSWERED.
--- NOTE | 2022-11-12 19:39 | NUR ---
RCVD PT FROM [facility] SUPERVISOR HISTOLOGY. PATIENT IS ON VENTILATOR SETTINGS AC VC 20 400 5+ 35% PATIENT IS SATING AT 100%. BREATH SOUNDS ARE DIMINISHED. DUP NEB TX GIVEN. NO RESP DISTRESS NOTED. WILL CONTINUE TO MONITOR.
--- NOTE | 2022-11-12 22:15 | NUR ---
SPOKE WITH DR ANGELES REGARDING PATIENTS NEED FOR PEEP. PATIENT WAS ON 16 AND TITRATED TO A PEEP OF 5. BUT PATIENT WAS UNABLE TO KEEP SATS AND LOOKED LIKE SHE WAS GASPING. DR ANGELES SAID TO INCREASE PEEP TO 8 DUE TO ASP PNA AND CXR CONDITION.
[2022-11-13] VITALS (30 sets, daily range): BP systolic 94–136; BP diastolic 49–84
[2022-11-13] MEDS: ALBUTEROL SULFATE/IPRATROPIU 3 ML SOL IH SCH ×4 (01:00→19:40)
[2022-11-13] MEDS: PROPOFOL 1000 MG/100 ML PREMIX 100 ML IV PRN ×8 (01:17→23:42)
[2022-11-13] MEDS: NACL 0.9% 1,000 ML IV SCH ×2 (02:40→11:42)
[2022-11-13] MEDS: MIDAZOLAM MDV 50 MG in NACL 0.9% 40 ML IV PRN ×2 (02:43→15:07)
[2022-11-13 05:25] LABS: BASOPHILS % (AUTO) 0.2 % (0.0-2.0); EOSINOPHILS # (AUTO) 0.3 K/uL (0-0.4); EOSINOPHILS % (AUTO) 2.1 % (0.0-4.0); HEMATOCRIT 29.9 % (36-48); HEMOGLOBIN 9.7 g/dL (12.0-16.0); LYMPHOCYTES # (AUTO) 1.7 K/uL (2.5-16.5); LYMPHOCYTES % (AUTO) 11.3 % (20.5-51.1); MEAN CORPUSCULAR HEMOGLOBIN 29 pg (27-31); MEAN CORPUSCULAR HGB CONC 32 g/dL (33-37); MEAN CORPUSCULAR VOLUME 89.1 fL (80-94); MONOCYTES # (AUTO) 0.7 K/uL (0.8-1.0); MONOCYTES % (AUTO) 4.6 % (1.7-9.3); NEUTROPHILS # (AUTO) 12.6 K/uL (1.8-7.7); NEUTROPHILS % (AUTO) 81.8 % (42.2-75.2); PLATELET COUNT (AUTO) 262 K/uL (140-450); RED BLOOD CELL COUNT(AUTO) 3.35 MIL/uL (4.20-5.40); RED CELL DISTRIBUTION WIDTH 16.6 % (11.6-13.7); WHITE BLOOD COUNT (AUTO) 15.4 K/uL (4.8-10.8)
--- NOTE | 2022-11-13 06:00 | NUR ---
Pt. remains sedated on Propofol and Versed Drips; no seizures noted @ this time. SR to ST on the monitor. On vent via ETT with Y1Ppb=40 to 99% on FiO2=40% and PEEP (+)8. On Levophed Drip to keep SBP>90mmHg. Rt. UA PICC line inserted by PICC Line RN and is okay to use. Cardiac, neuro and resp. monitoring cont.
[2022-11-13 06:26] LABS: ALBUMIN 2.5 g/dL (3.4-5.0); ANION GAP 14.4 (8-16); CREATININE 0.5 mg/dL (0.6-1.3); MAGNESIUM 2.3 mg/dL (1.8-2.4); POTASSIUM 3.4 mmol/L (3.5-5.1); TOTAL BILIRUBIN 0.4 mg/dL (0.0-1.0)
[2022-11-13] MEDS: NOREPINEPHRINE 4 MG in DEXTROSE 5% 250 ML IV PRN (08:04)
[2022-11-13] MEDS: levETIRAcetam 1,000 MG in NACL 0.9% 100 ML IV SCH ×2 (09:14→21:19)
[2022-11-13] MEDS: PANTOPRAZOLE 40 MG INJ VIAL IVP SCH (09:14)
--- NOTE | 2022-11-13 10:44 | NUR ---
SCREEN FOR LOW LATASHA SCALE AT RISK, CONTINUE TO FOLLOW PRESSURE ULCER PREVENTION INTERVENTIONS. -TURN AND REPOSITION PATIENT Q 2H, ASSIST IF NEEDED -ASSESS AND MONITOR SKIN CONDITION DURING POSITION CHANGES -OFFLOAD BILATERAL HEELS BY PLACING PILLOWS UNDER CALVES AT ALL TIMES, UNLESS OTHERWISE CONTRAINDICATED -PRESSURE REDISTRIBUTION BY PLACING PILLOWS AND OFFLOADING SACRALCOCCYX -KEEP SKIN CLEAN AND DRY AT ALL TIMES.
[2022-11-13] MEDS: AZITHROMYCIN 500 MG in DEXTROSE 5% 250 ML IV SCH (11:42)
[2022-11-13] MEDS: LORazepam 1 MG TAB PO SCH ×2 (17:20→20:32)
--- NOTE | 2022-11-13 19:33 | NUR ---
SBAR REPORT GIVEN TO GEE RN, ALL CARES ENDORSED.
[2022-11-13] MEDS: POTASSIUM CHLORIDE 10 MEQ TABER PO PRN (22:15)
[2022-11-14] VITALS (29 sets, daily range): BP systolic 105–159; BP diastolic 54–101
[2022-11-14] MEDS: LORazepam 1 MG TAB PO SCH ×6 (00:41→20:42)
[2022-11-14] MEDS: ALBUTEROL SULFATE/IPRATROPIU 3 ML SOL IH SCH ×4 (01:45→20:00)
[2022-11-14] MEDS: PROPOFOL 1000 MG/100 ML PREMIX 100 ML IV PRN ×3 (03:18→15:40)
[2022-11-14] MEDS: MIDAZOLAM MDV 50 MG in NACL 0.9% 40 ML IV PRN (06:03)
[2022-11-14 06:48] LABS: ALBUMIN 2.3 g/dL (3.4-5.0); ANION GAP 10.8 (8-16); CREATININE 0.6 mg/dL (0.6-1.3); MAGNESIUM 2.4 mg/dL (1.8-2.4); POTASSIUM 3.8 mmol/L (3.5-5.1); TOTAL BILIRUBIN 0.3 mg/dL (0.0-1.0)
--- NOTE | 2022-11-14 07:00 | NUR ---
Pt. remains on vent via ETT with O2 Sat=94n to 100% on current settings. Secretions suctioned prn. SR to ST on the scope. Sedated on Propofol, Versed Drips and Precedex initiated as ordered. No seizures noted at this time. Mother updated on pt. status with all questions answered. Will cont. to monitor cardiac, neuro and resp. status.
[2022-11-14] MEDS: DEXMEDETOMIDINE HCL 400 MCG in DEXTROSE 5% 96 ML IV PRN ×3 (07:03→21:21)
[2022-11-14 07:04] LABS: BASOPHILS % (AUTO) 0.2 % (0.0-2.0); EOSINOPHILS # (AUTO) 0.4 K/uL (0-0.4); HEMATOCRIT 29.2 % (36-48); HEMOGLOBIN 9.3 g/dL (12.0-16.0); LYMPHOCYTES # (AUTO) 1.6 K/uL (2.5-16.5); LYMPHOCYTES % (AUTO) 12.6 % (20.5-51.1); MEAN CORPUSCULAR HEMOGLOBIN 29 pg (27-31); MEAN CORPUSCULAR HGB CONC 32 g/dL (33-37); MEAN CORPUSCULAR VOLUME 90.1 fL (80-94); MONOCYTES # (AUTO) 0.4 K/uL (0.8-1.0); MONOCYTES % (AUTO) 2.7 % (1.7-9.3); NEUTROPHILS # (AUTO) 10.5 K/uL (1.8-7.7); NEUTROPHILS % (AUTO) 81.5 % (42.2-75.2); PLATELET COUNT (AUTO) 262 K/uL (140-450); RED BLOOD CELL COUNT(AUTO) 3.24 MIL/uL (4.20-5.40); RED CELL DISTRIBUTION WIDTH 16.8 % (11.6-13.7); WHITE BLOOD COUNT (AUTO) 12.9 K/uL (4.8-10.8)
--- NOTE | 2022-11-14 07:25 | NUR ---
SBAR REPORT RECEIVED FROM GEE CABA, ALL CARES ASSUMED. PT INTUBATED AND SEDATED. ETT TO VENT AC/VC 20, 400, 40%, 8. PROPOFOL AT 45 MCG/KG/MIN; VERSED 4MG/HR; PRECEDEX 0.2 MCG/KG/HR INFUSING TO TREVER PICC. PT RESTING IN BED WITH EYES CLOSED. VSS. GODOY CATHETER DRAINING TO GRAVITY. BED IN LOW AND LOCKED POSITION.
[2022-11-14] MEDS: PANTOPRAZOLE 40 MG INJ VIAL IVP SCH (08:25)
--- NOTE | 2022-11-14 09:38 | NUR ---
RECEIVED ON A hiogiAPE R860 VENTILATOR PLUGGED INTO RED OUTLET TOLERATING WELL WITHOUT ADVERSE REACTIONS NOTED TO ENDOTRACHEAL TUBE #8.0 SECURED AT 22cm TEETH/GUM LINE WITH AN ANCHOR FAST CUFF PRESSURE CHECKED NOTED AMBU BAG AT BEDSIDE SEDATED RESTING COMFORTABLY EQUAL CHEST RISE ENDOTRACHEAL SUCTION FOR MODERAT THIN YELLOW SECRETIONS AIRWAY PATENT
[2022-11-14] MEDS: levETIRAcetam 1,000 MG in NACL 0.9% 100 ML IV SCH ×2 (09:49→20:38)
--- NOTE | 2022-11-14 09:50 | NUR ---
PLACED ON CPAP TRIAL NOTED TOLERATING WELL WITHOUT ADVERSE REACTIONS NOTED GOOD CHEST RISE AIRWAY PATENT MARTINA/CONFERENCE COORDINATOR NOTIFIED
--- NOTE | 2022-11-14 10:15 | NUR ---
PT ON SEDATION VACATION. RT PRAKASH PLACED PT ON CPAP TRIAL AT 0950, PT IS MAINTAINING ON CPAP MODE. PROPOFOL IS OFF, VERSED 3MG/HR, PRECEDEX, 0.8MCG/KG/HR. PT RR NOTED TO BE SLIGHTLY INCREASED, 24-28 AT THIS TIME. PT TURNING HER HEAD TO SOUND OF VOICES, NOT OPENING HER EYES.
[2022-11-14] MEDS: AZITHROMYCIN 500 MG in DEXTROSE 5% 250 ML IV SCH (11:29)
--- NOTE | 2022-11-14 12:20 | NUR ---
MOTHER AT BEDSIDE, USED PHONE MEDICAL LAB SPECIALIST TO GIVE UPDATE. [facility] NO ASSISTED THE CONVERSATION, [place] [id number]. GAVE MOTHER UPDATE AT BEDSIDE, ALL QUESTIONS ANSWERED AT THIS TIME.
--- NOTE | 2022-11-14 13:55 | NUR ---
PT OFF CPAP MODE. RT PRAKASH AT BEDSIDE. MOTHER AT BEDSIDE. PT RR 32-35, OCCASIONAL COUGHING, BACK TO AC MODE. PROPOFOL BACK ON AT 10MCG/KG/MIN.
--- NOTE | 2022-11-14 14:18 | NUR ---
DR. DAVID RODRIGUEZ ROUNDING IN ICU; [facility] TOMORROW 11/15 CPAP TRIAL X 1 HOUR; DRAW ABG; CALL MD WITH RESULTS; POSSIBLE EXTUBATION
--- NOTE | 2022-11-14 17:00 | NUR ---
11/14/22 FOLLOW UP COMPLETED.PLEASE REFER TO NUTRITION ASSESSMENT UNDER CARE ACTIVITY FOR ESTIMATED NUTRITIONAL NEEDS. 1.CONTINUE WITH JEVITY 1.2 @ 40 ML/HR; FWF 150 ML Q6H OR PER MD. -WITH THE CURRENT PROPOFOL RATE, PT WILL RECEIVE 1310 KCAL, 53G PROTEIN AND 774 ML FREE WATER, MEETING 78% OF ESTIMATED KCAL AND 79% OF ESTIMATED PROTEIN NEEDS; ADEQUATE -IF PT OFF PROPOFOL, RECOMMEND INCREASING THE TF RATE TO 60ML/HR TO MEET 100% OF ESTIMATED NEEDS 2. IF EXTUBATED, RECOMMEND STARTING WITH CLEAR LIQUID DIET AND GRADUALLY ADVANCING TO REGULAR DIET TOLERATED 3. RD TO FOLLOW-UP IN 2-3 DAYS PATIENT IS HIGH RISK. ISAURA OLEA RD
--- NOTE | 2022-11-14 19:16 | NUR ---
SBAR REPORT GIVEN TO GEE RN, ALL CARES ENDORSED.
[2022-11-15] VITALS (31 sets, daily range): BP systolic 96–147; BP diastolic 50–96
[2022-11-15] MEDS: LORazepam 1 MG TAB PO SCH ×6 (00:42→20:19)
[2022-11-15] MEDS: DEXMEDETOMIDINE HCL 400 MCG in DEXTROSE 5% 96 ML IV PRN ×4 (01:16→10:54)
[2022-11-15] MEDS: ALBUTEROL SULFATE/IPRATROPIU 3 ML SOL IH SCH ×4 (01:27→19:31)
[2022-11-15 05:43] LABS: BASOPHILS % (AUTO) 0.3 % (0.0-2.0); EOSINOPHILS # (AUTO) 0.4 K/uL (0-0.4); EOSINOPHILS % (AUTO) 3.7 % (0.0-4.0); HEMATOCRIT 32.1 % (36-48); HEMOGLOBIN 10.6 g/dL (12.0-16.0); LYMPHOCYTES # (AUTO) 1.6 K/uL (2.5-16.5); LYMPHOCYTES % (AUTO) 15.7 % (20.5-51.1); MEAN CORPUSCULAR HEMOGLOBIN 29 pg (27-31); MEAN CORPUSCULAR HGB CONC 33 g/dL (33-37); MEAN CORPUSCULAR VOLUME 88.7 fL (80-94); MONOCYTES # (AUTO) 0.6 K/uL (0.8-1.0); MONOCYTES % (AUTO) 5.4 % (1.7-9.3); NEUTROPHILS # (AUTO) 7.8 K/uL (1.8-7.7); NEUTROPHILS % (AUTO) 74.9 % (42.2-75.2); PLATELET COUNT (AUTO) 277 K/uL (140-450); RED BLOOD CELL COUNT(AUTO) 3.62 MIL/uL (4.20-5.40); RED CELL DISTRIBUTION WIDTH 16.5 % (11.6-13.7); WHITE BLOOD COUNT (AUTO) 10.5 K/uL (4.8-10.8)
[2022-11-15 05:59] LABS: ALBUMIN 2.5 g/dL (3.4-5.0); ANION GAP 10.4 (8-16); CARBON DIOXIDE 28.2 mmol/L (21-32); CREATININE 0.6 mg/dL (0.6-1.3); MAGNESIUM 2.1 mg/dL (1.8-2.4); POTASSIUM 3.6 mmol/L (3.5-5.1); TOTAL BILIRUBIN 0.5 mg/dL (0.0-1.0)
--- NOTE | 2022-11-15 06:00 | NUR ---
Pt. remains on vent via ETT with O2 Sat=94n to 92 to 100% on current settings. Secretions suctioned prn. SR to ST on the monitor. Sedated on Precedex Drip and Versed Drip held @ 0630 as ordered. On Ativan per NGT. No seizures noted at this time. Will cont. to monitor cardiac, neuro and resp. status.
--- NOTE | 2022-11-15 07:09 | NUR ---
RECEIVED ON A GeosignAPE R860 VENTILATOR PLUGGED INTO RED OUTLET TOLERATING WELL WITHOUT COMPLICATIONS NOTED TO AN ENDOTRACHEAL TUBE #8.0 SECURED AT 22cm TEETH/GUM LINE WITH AN ANCHOR FAST CUFF PRESSURE CHECKED NOTED AMBU BAG AT BEDSIDE SEDATED INTERMITTENTLY AWAKE/IRRITABLE EQUAL CHEST RISE ENDOTRACHEAL SUCTION FOR SMALL THIN YELLOW SECRETIONS AIRWAY PATENT
[2022-11-15] MEDS: PANTOPRAZOLE 40 MG INJ VIAL IVP SCH (08:31)
[2022-11-15] MEDS: levETIRAcetam 1,000 MG in NACL 0.9% 100 ML IV SCH ×2 (08:31→20:34)
--- NOTE | 2022-11-15 09:50 | NUR ---
PLACED ON CPAP TRIAL TOLERATING WELL NO DISTRESS NOTED GOOD CHEST RISE AND AERATION THROUGHOUT BILATERAL LUNG CHONG AIRWAY PATENT MAY/POWER REACTOR SUPERVISOR AWARE
--- NOTE | 2022-11-15 10:25 | NUR ---
DR. DAVID RODRIGUEZ ROUNDING PER DECEMBER/FOOT WORKER FOREMENTIONED TITRATED PS TO 8cmH2O CONFIRMED BY V.OErnestine RODRIGUEZ IN [facility]
--- NOTE | 2022-11-15 10:29 | NUR ---
PULMO CONSULT: DR. RODRIGUEZ CAME SEEN AND EXAMINE PATIENT. INFORMED CPAP TRIAL STARTED 40 MINS AGO, STATED PATIENT LOOKS GOOD. ORDERED ABG. RT INFORMED.
--- NOTE | 2022-11-15 10:32 | NUR ---
SEDATED RESTING WELL TOLERATING CPAP TRIAL WELL WITHOUT PULMONARY DISTRESS NOTED EQUAL CHEST RISE GOOD AERATION THROUGHOUT BILATERAL LUNG CHONG AIRWAY PATENT
[2022-11-15] MEDS: AZITHROMYCIN 500 MG in DEXTROSE 5% 250 ML IV SCH (10:48)
--- NOTE | 2022-11-15 11:07 | NUR ---
NO DISTRESS NOTED GOOD CHEST RISE AIRWAY PATENT
--- NOTE | 2022-11-15 11:40 | NUR ---
VIA ICU PHYSICIAN CELL PHONE; TEXTED DR. DAVID RODRIGUEZ CPAP ABG RESULTS Spvt SpRR RSBI SATURATION
--- NOTE | 2022-11-15 11:43 | NUR ---
RETURN TEXT FROM DR. DAVID RODRIGUEZ WITH ORDER FOR EXTUBATION
--- NOTE | 2022-11-15 12:01 | NUR ---
TOLERATING CPAP TRIAL WITHOUT EVIDENCE OF RESPIRATORY DISTRESS NOTED EQUAL CHEST RISE AIRWAY PATENT; PREP FOR EXTUBATION ORDERED
--- NOTE | 2022-11-15 12:05 | NUR ---
PREPPED FOR EXTUBATION; WOKE PATIENT EDUCATION GIVEN WITH ACKNOWLEDGEMENT; 2 MINUTE 100% GIVEN; ENDOTRACHEAL SUCTION WITH MINUTE THIN PALE YELLOW SECRETION; OROPHARYNGEAL SUCTION FOR MODERATE THIN PALE YELLOW SECRETONS; CUFF DEFLATED; OKAY BY MAY/FABRICATOR INDUSTRIAL FURNACE TO REMOVE OG TUBE; ENCOURAGED PATIENT FOR DEEP BREATH; EXTRACTED ENDOTRACHEAL AND OG TUBE; PATIENT PRESENTING STRONG COUGH; OROPHARYNGEAL SUCTION FOR SMALL THI PALE YELLOW SECRETIONS; AIRWAY PATENT; PLACE PATIENT ON SUPPLEMENTAL OXYGEN VIA COOL AEROSOL TO MASK AT FIO2 OF 28%/6 LPM SATURATION 97% RR 24 BPM HR 98; TOLERATED EXTUBATION WELL WITHOUT ANY COMPLICATIONS NOTED
--- NOTE | 2022-11-15 13:00 | NUR ---
post extubation patient alert, drowsy but about to answer question by face expression or nodding. no s/s of distress, on 6 liter mask fio2 28%, saturation 95%. frequent reorientation needed. encourage to call when assistance needed, bed is low and lock position. will monitor.
--- NOTE | 2022-11-15 13:58 | NUR ---
REMAINS ON PRECEDEX AT 0.2mcg; AWAKE FOLLOWS COMMANDS; TOLERATED INCENTIVE SPIROMETRY THERAPY; DUE TO SEDATION PATIENT NEEDS MORE EDUCATION AND COACHING FOR INCENTIVE SPIROMETRY
--- NOTE | 2022-11-15 15:00 | NUR ---
PRECEDEX TURN OFF.
[2022-11-15] MEDS: LORazepam 2 MG/ML VIAL IM/IVP PRN (17:22)
--- NOTE | 2022-11-15 17:30 | NUR ---
MOTHER IS CONCERNED ABOUT PATIENT VISION. STATED PATIENT HAD SEIZURE EPISODE PRIOR TAKING HER TO THE EMERGENCY. WOULD LIKE TO SPEAK WITH NEUROLOGIST. PAGED DR. PRINGLE ABLE TO S/W HIM STATED WILL SEE PATIENT TOMORROW AND WILL UPDATED MOTHER. MOTHER MADE AWARE. VERBALIZED UNDERSTANDING.
[2022-11-16] VITALS (22 sets, daily range): BP systolic 102–167; BP diastolic 60–99
[2022-11-16] MEDS: LORazepam 1 MG TAB PO SCH ×6 (00:18→20:40)
[2022-11-16] MEDS: ALBUTEROL SULFATE/IPRATROPIU 3 ML SOL IH SCH ×4 (00:56→19:14)
--- NOTE | 2022-11-16 05:40 | NUR ---
Pt. awake, confused, agitated and frequently attempts to pull Cano Catheter, PICC Line and Nasal canula; Kb. Soft Wrist restraints in place with no injury noted @ this time. No seizures noted at this time; on Keppra and Ativan PO and prn IV. T=101 deg. F; Tylenol adm. PO and blanket removed. Pt. refused ice packs. T= 99.2 deg. F @ this time. Pt. uncooperative with some aspects of care; encouraged. Pt. prefers to speak Dutch than Belarusian but speaks both. Will cont. to monitor cardiac, neuro and resp. status.
[2022-11-16 06:08] LABS: BASOPHILS # (AUTO) 0.1 K/uL (0.00-0.22); BASOPHILS % (AUTO) 0.5 % (0.0-2.0); EOSINOPHILS # (AUTO) 0.2 K/uL (0-0.4); EOSINOPHILS % (AUTO) 1.5 % (0.0-4.0); HEMATOCRIT 32.6 % (36-48); HEMOGLOBIN 10.6 g/dL (12.0-16.0); LYMPHOCYTES % (AUTO) 14.6 % (20.5-51.1); MEAN CORPUSCULAR HEMOGLOBIN 28 pg (27-31); MEAN CORPUSCULAR HGB CONC 33 g/dL (33-37); MEAN CORPUSCULAR VOLUME 86.7 fL (80-94); MONOCYTES # (AUTO) 0.7 K/uL (0.8-1.0); MONOCYTES % (AUTO) 4.9 % (1.7-9.3); NEUTROPHILS # (AUTO) 10.8 K/uL (1.8-7.7); NEUTROPHILS % (AUTO) 78.5 % (42.2-75.2); PLATELET COUNT (AUTO) 276 K/uL (140-450); RED BLOOD CELL COUNT(AUTO) 3.76 MIL/uL (4.20-5.40); RED CELL DISTRIBUTION WIDTH 17.1 % (11.6-13.7); WHITE BLOOD COUNT (AUTO) 13.7 K/uL (4.8-10.8)
--- NOTE | 2022-11-16 07:30 | NUR ---
RECEIVED PT IN HOSPITAL BED, GCS 14, STACH ON MONITOR. REMAINS IN BILATERAL UPPER WRIST SOFT RESTRAINTS. D/T HARM TO SELF AND PULLING EQUIPMENT. FC DRAINING TO GRAVITY. 95% ON RA. DENIES SOB. PENDING SWALLOW EVAL TODAY. NAD. SAFETY MAINTAINED.
[2022-11-16 08:04] LABS: ALBUMIN 2.8 g/dL (3.4-5.0); ANION GAP 14.9 (8-16); CARBON DIOXIDE 23.4 mmol/L (21-32); CREATININE 0.5 mg/dL (0.6-1.3); MAGNESIUM 2.3 mg/dL (1.8-2.4); POTASSIUM 3.3 mmol/L (3.5-5.1); TOTAL BILIRUBIN 0.6 mg/dL (0.0-1.0)
[2022-11-16] MEDS: levETIRAcetam 1,000 MG in NACL 0.9% 100 ML IV SCH ×2 (09:00→20:45)
[2022-11-16] MEDS: PANTOPRAZOLE 40 MG INJ VIAL IVP SCH (09:06)
--- NOTE | 2022-11-16 09:09 | NUR ---
DR KENNEDY AT BEDSIDE FOR EVAL.
[2022-11-16] MEDS: POTASSIUM CHLORIDE 10 MEQ TABER PO PRN (10:06)
--- NOTE | 2022-11-16 11:26 | NUR ---
PT GIVEN BED BATH, LINEN CHANGE. PT BECOME AGGRESSIVE ATTEMPTING TO HIT AND SCRATCH STAFF. PT REMAINS ON RESTRAINTS.
--- NOTE | 2022-11-16 14:15 | NUR ---
SPEECH THERAPY AT BEDSIDE. PT CLEARED FOR PUREE DIET WITH NEKTAR THICK
[2022-11-16] MEDS: AZITHROMYCIN 500 MG in DEXTROSE 5% 250 ML IV SCH (15:55)
--- NOTE | 2022-11-16 17:00 | NUR ---
PTS MOTHER AT BEDSIDE. TOLERATING DINNER WITHOUT ANY ISSUES. NSR ON MONITOR. BREATHING UNLABORED. SAFETY MAINTAINED
--- NOTE | 2022-11-16 19:17 | NUR ---
RECEIVED PT ON RA SPO2 95%. PT WAS ASLEEP BUT WAKES UP ONCE SPOKEN TO. PT VERY TIRED BUT RESPONSIVE TO ALL COMMANDS. EQUAL BS CLEAR. TOLERATED TX
[2022-11-17] VITALS (18 sets, daily range): BP systolic 100–153; BP diastolic 36–100
[2022-11-17] MEDS: LORazepam 1 MG TAB PO SCH ×5 (00:19→16:00)
--- NOTE | 2022-11-17 08:02 | NUR ---
SBAR REPORT RECEIVED FROM TIFF CABA, ALL CARES ASSUMED. PT RESTING IN BED WITH EYES OPEN, CALM, ANSWERING QUESTIONS APPROPRIATELY. NS TKO INFUSING TO TREVER PICC. LUNG SOUNDS CLEAR THROUGHOUT. BED IN LOW AND LOCKED POSITION. CALL LIGHT WITHIN REACH.
[2022-11-17] MEDS: ALBUTEROL SULFATE/IPRATROPIU 3 ML SOL IH SCH ×3 (08:17→19:19)
--- NOTE | 2022-11-17 08:35 | NUR ---
ATTEMPTED TO GIVE PT ATIVAN PO IN JELLO. PT SPIT OUT JELLO INTO HER HAND AND STATED "WHY ARE YOU TRYING TO DRUG ME" REINFORCED MEDICATION EDUCATION. AWARE.
[2022-11-17 08:47] LABS: ANION GAP 12.4 (8-16); CREATININE 0.5 mg/dL (0.6-1.3); POTASSIUM 3.4 mmol/L (3.5-5.1)
[2022-11-17] MEDS: PANTOPRAZOLE 40 MG INJ VIAL IVP SCH (08:57)
[2022-11-17] MEDS: levETIRAcetam 1,000 MG in NACL 0.9% 100 ML IV SCH ×2 (08:57→20:23)
[2022-11-17 09:01] LABS: HEMATOCRIT 34.6 % (36-48); HEMOGLOBIN 11.5 g/dL (12.0-16.0); MEAN CORPUSCULAR HEMOGLOBIN 29 pg (27-31); MEAN CORPUSCULAR HGB CONC 33 g/dL (33-37); MEAN CORPUSCULAR VOLUME 87.5 fL (80-94); PLATELET COUNT (AUTO) 296 K/uL (140-450); RED BLOOD CELL COUNT(AUTO) 3.96 MIL/uL (4.20-5.40); RED CELL DISTRIBUTION WIDTH 16.9 % (11.6-13.7); WHITE BLOOD COUNT (AUTO) 16.9 K/uL (4.8-10.8)
--- NOTE | 2022-11-17 09:30 | NUR ---
PT HAVING PERIODS OF CONFUSION. PT REPORTED THAT SHE THOUGHT HER SISTER WAS HERE, SHE WAS JUST TALKING TO HER AND ASKED WHERE HER SISTER WENT. INFORMED PT THAT HER SISTER HAS NOT BEEN HERE. PT ALSO REQUESTED TO TALK TO HER MOM, PHONE CALL TO MOM, SHE DID NOT ANSWER. LEFT VOICEMAIL.
[2022-11-17 09:53] LABS: EOSINOPHILS % (MANUAL) 4 % (0-4); LYMPHOCYTES % (MANUAL) 18 % (20-46); MONOCYTES % (MANUAL) 4 % (5-12)
[2022-11-17 09:54] LABS: METAMYELOCYTES % 1 % (0-0); PROMYELOCYTES % 1 % (0-0)
[2022-11-17] MEDS: LORazepam 2 MG/ML VIAL IM/IVP PRN (13:41)
--- NOTE | 2022-11-17 15:50 | NUR ---
LOC ASLEEP AROUSABLE GOOD CHEST RISE SATURATION 89%-90% ON ROOM AIR PLACED ON SUPPLEMENTAL OXYGEN AT 2 LPM VIA NC GLOVE TURNER AND FORMER TO MONITOR
[2022-11-17] MEDS: AZITHROMYCIN 500 MG in DEXTROSE 5% 250 ML IV SCH (16:00)
--- NOTE | 2022-11-17 16:46 | NUR ---
11/17/22 RD FOLLOW UP COMPLETED PLEASE REFER TO NUTRITION ASSESSMENT UNDER CARE ACTIVITY FOR ESTIMATED NUTRITIONAL NEEDS. 1. CONTINUE MECHANICAL SOFT, NECTAR THICK LIQUID DIET TOLERATED 2. MONITOR PO INTAKE, GI SYMPTOMS, AND NUTRITION RELATED LAB VALUES 3. RD TO FOLLOW-UP 3-5 DAYS, MODERATE RISK REVIEWED BY CHANDLER SMALL RD
--- NOTE | 2022-11-17 20:00 | NUR ---
rEPORT RECEIVED FROM FAVIAN MACK RN. TELEPHONE REPORT GIVEN TO SURESH RICHTER RN. TRANSFERRED PT TO RM 124A VIA HOSPITAL BED. CONDITION STABLE FOR TRANSPORT. CALLED AND SPOKE WITH TN'S MOM NANETTE, UPDATED HER PT NOW IN TELEMETRY, RM 124A.
--- NOTE | 2022-11-17 22:00 | NUR ---
RECEIVED PATIENT FROM NEELAM CABA FOR CONTINUITY OF CARE.
[2022-11-18] VITALS: BP 112/53
[2022-11-18] MEDS: ALBUTEROL SULFATE/IPRATROPIU 3 ML SOL IH SCH ×3 (00:54→11:59)
--- NOTE | 2022-11-18 02:30 | NUR ---
PATIENT REMOVED RESTRAINTS, REFUSED TO PUT IT BACK.
[2022-11-18] MEDS: LORazepam 2 MG/ML VIAL IM/IVP PRN ×2 (03:57→10:50)
[2022-11-18 04:00] VITALS: BP 101/54
--- NOTE | 2022-11-18 07:16 | NUR ---
GAVE REPORT TO DAY SHIFT NURSE FOR CONTINUITY OF CARE.
[2022-11-18 08:00] VITALS: BP 125/75
[2022-11-18] MEDS: PANTOPRAZOLE 40 MG INJ VIAL IVP SCH (08:47)
[2022-11-18] MEDS: levETIRAcetam 1,000 MG in NACL 0.9% 100 ML IV SCH (08:48)
--- NOTE | 2022-11-18 11:00 | NUR ---
PT AGITATED AND ANXIOUS, CONTINUOUSLY STATING DESIRE TO LEAVE. EXPLAINED TO PT SAFETY RISK AND IMPORTANCE OF COMPLIANCE, PT UNABLE TO COMPREHEND DUE TO ALTERED MENTAL STATUS. ATIVAN GIVEN. PSYCH CONSULTED PER MD ORDERS. FREQUENT REORIENTATION AND CALMING MEASURES ENFORCED.
[2022-11-18 12:00] VITALS: BP 105/53
--- NOTE | 2022-11-18 13:06 | NUR ---
P.T. NOTES P.T. EVAL COMPLETED; REFER TO EVAL FOR DETAILS.
[2022-11-18] MEDS: AZITHROMYCIN 500 MG in DEXTROSE 5% 250 ML IV SCH (16:02)
[2022-11-18] MEDS ORDERED: LAM25 PO (16:05)
[2022-11-18] MEDS ORDERED: LEVE250T1 PO (16:06)
--- NOTE | 2022-11-18 18:25 | NUR ---
DISCHARGE INSTRUCTIONS EXPLAINED TO PT AND MOTHER, VERBALIZED UNDERSTANDING. PICC LINE REMOVED, BELONGINGS RETURNED.
[2022-11-18] MEDS ORDERED: lamoTRIgine 25 MG TAB PO SCH (21:00)
--- NOTE | 2022-11-22 15:20 | NUR ---
CALLED DR HA'S OFFICE LOCATED AT [facility] [address] [place] [address]. SPOKE WITH SUSANNE SHE INFORMED ME PT HAD ALREADY MADE FOLLOW UP APPOINTMENT FOR 12/15/2022 AT 1400.
== END 2022-11-18 18:10 | disposition home or self-care (01) | DRG 720 ==
LOC: MED 06:04 → MTU 09:48 → MIC 20:20 → MTU 11-17 19:58
PROVIDERS: ADMIT Internal Medicine; ATTEND Internal Medicine
PROC: 5A1955Z Respiratory Ventilation, Greater than 96 Consecutive Hours (ICD-10-PCS; principal; 2022-11-11)
PROC: 0BH17EZ Insertion of Endotracheal Airway into Trachea, Via Natural or Artificial Opening (ICD-10-PCS; 2022-11-11)
PROC: 4A10X4Z Monitoring of Central Nervous Electrical Activity, External Approach (ICD-10-PCS; 2022-11-12)
PROC: 02HV33Z Insertion of Infusion Device into Superior Vena Cava, Percutaneous Approach (ICD-10-PCS; 2022-11-12)
PROC: B548ZZA Ultrasonography of Superior Vena Cava, Guidance (ICD-10-PCS; 2022-11-12)
PROC: 0D9670Z Drainage of Stomach with Drainage Device, Via Natural or Artificial Opening (ICD-10-PCS; 2022-11-12)
DX: A41.9 Sepsis, unspecified organism (principal); J96.01 Acute respiratory failure with hypoxia; J69.0 Pneumonitis due to inhalation of food and vomit; R65.20 Severe sepsis without septic shock; G40.901 Epilepsy, unspecified, not intractable, with status epilepticus; E66.9 Obesity, unspecified; Z20.822 Contact with and (suspected) exposure to COVID-19; G40.909 Epilepsy, unspecified, not intractable, without status epilepticus; Z91.199 Patient's noncompliance with other medical treatment and regimen due to unspecified reason; Z68.38 Body mass index [BMI] 38.0-38.9, adult
CPT/HCPCS: 36415; 36600; 70450; 71045; 80048; 80053; 80305; 81003; 82803; 83605; 83690; 83735; 83880; 84484; 84702; 85025; 87040; 87070; 87081; 87205; 89220; 92526; 93005; 93970; 94002; 94003; 94640; 95816; 96361; 96365; 96375; 97112; 97116; 97163-GP; 99291; 99292; C9113; G0480; G0482; J0456; J0696; J1644; J1953; J1956; J2060; J2250; J2704; J3010; J3490; J7030; J7060; Q0092

== ENCOUNTER 2023-06-08 06:40 | Emergency (ER) | payer OTHER ==
[~2023-06-08] VITALS: Ht 165.1 cm; Wt 77.1 kg
[2023-06-08 06:40] VITALS: BP 163/100; PULSE 120; RESP 15; TEMP 97.7; O2SAT 95
[~2023-06-08 06:40] MED LIST changes: -AMOX-1230 PO; +LAM25 PO; +LEVE250T1 PO; -LEVE750T3 PO; -LEVE750T8 PO
[2023-06-08 07:56] VITALS: O2SAT 97
[2023-06-08] MEDS: LORazepam 2 MG/ML VIAL IVP ONE (08:16)
[2023-06-08 09:32] LABS: ALBUMIN 3.9 g/dL (3.4-5.0); ANION GAP 12.7 (8-16); CALCIUM 9.1 mg/dL (8.5-10.1); CARBON DIOXIDE 25.4 mmol/L (21-32); CREATININE 0.7 mg/dL (0.6-1.3); POTASSIUM 4.1 mmol/L (3.5-5.1); TOTAL BILIRUBIN 0.3 mg/dL (0.0-1.0); TOTAL PROTEIN, SERUM 7.7 g/dL (6.4-8.2)
[2023-06-08 09:55] VITALS: O2SAT 100
[2023-06-08 10:59] LABS: BASOPHILS % (AUTO) 0.3 % (0.0-2.0); EOSINOPHILS # (AUTO) 0.5 K/uL (0-0.4); EOSINOPHILS % (AUTO) 3.8 % (0.0-4.0); HEMATOCRIT 40.2 % (36-48); HEMOGLOBIN 13.3 g/dL (12.0-16.0); LYMPHOCYTES # (AUTO) 2.3 K/uL (2.5-16.5); LYMPHOCYTES % (AUTO) 17.4 % (20.5-51.1); MEAN CORPUSCULAR HEMOGLOBIN 29 pg (27-31); MEAN CORPUSCULAR HGB CONC 33 g/dL (33-37); MEAN CORPUSCULAR VOLUME 86.6 fL (80-94); MONOCYTES # (AUTO) 0.5 K/uL (0.8-1.0); MONOCYTES % (AUTO) 3.8 % (1.7-9.3); NEUTROPHILS # (AUTO) 9.9 K/uL (1.8-7.7); NEUTROPHILS % (AUTO) 74.7 % (42.2-75.2); PLATELET COUNT (AUTO) 380 K/uL (140-450); RED BLOOD CELL COUNT(AUTO) 4.64 MIL/uL (4.20-5.40); RED CELL DISTRIBUTION WIDTH 14.2 % (11.6-13.7); WHITE BLOOD COUNT (AUTO) 13.3 K/uL (4.8-10.8)
[2023-06-08 11:45] VITALS: BP 128/76; PULSE 76; RESP 15; TEMP 98.6; O2SAT 99
== END 2023-06-08 11:45 | disposition home or self-care (01) ==
LOC: MED 06:40
DX: R56.9 Unspecified convulsions (principal); Z79.899 Other long term (current) drug therapy
CPT/HCPCS: 36415; 80053; 85025; 96374; 99283; J2060

== ENCOUNTER 2023-10-08 19:35 | Emergency (ER) | payer OTHER ==
[~2023-10-08] VITALS: Ht 165.1 cm; Wt 88.5 kg
[2023-10-08 19:47] VITALS: BP 126/76; PULSE 118; RESP 20; TEMP 97.4; O2SAT 99
[2023-10-08] MEDS: levETIRAcetam 1,000 MG in NACL 0.9% 100 ML IV ONE (20:00)
[2023-10-08] MEDS: KETOROLAC 30 MG/ML VIAL IVP ONE (20:15)
[2023-10-08] MEDS ORDERED: levETIRAcetam 100 MG/ML VIAL IV ONE ×2 (20:57→20:58)
[2023-10-08 21:28] LABS: HEMOGLOBIN 15.6 g/dL (12.0-16.0); MEAN CORPUSCULAR VOLUME 84.9 fL (80-94)
[2023-10-08 21:35] LABS: BASOPHILS # (AUTO) 0.1 K/uL (0.00-0.22); BASOPHILS % (AUTO) 0.4 % (0.0-2.0); EOSINOPHILS # (AUTO) 0.5 K/uL (0-0.4); EOSINOPHILS % (AUTO) 2.7 % (0.0-4.0); HEMATOCRIT 46.5 % (36-48); LYMPHOCYTES # (AUTO) 1.4 K/uL (2.5-16.5); MEAN CORPUSCULAR HEMOGLOBIN 28 pg (27-31); MEAN CORPUSCULAR HGB CONC 34 g/dL (33-37); MONOCYTES # (AUTO) 0.8 K/uL (0.8-1.0); MONOCYTES % (AUTO) 3.8 % (1.7-9.3); NEUTROPHILS # (AUTO) 17.2 K/uL (1.8-7.7); NEUTROPHILS % (AUTO) 86.1 % (42.2-75.2); PLATELET COUNT (AUTO) 428 K/uL (140-450); RED BLOOD CELL COUNT(AUTO) 5.48 MIL/uL (4.20-5.40); RED CELL DISTRIBUTION WIDTH 14.6 % (11.6-13.7)
[2023-10-08 21:40] LABS: ANION GAP 16.9 (8-16); CALCIUM 8.6 mg/dL (8.5-10.1); CARBON DIOXIDE 25.4 mmol/L (21-32); CREATININE 0.6 mg/dL (0.6-1.3); POTASSIUM 4.3 mmol/L (3.5-5.1)
[2023-10-08] MEDS: ACETAMINOPHEN EXTRA STRENGTH 500 MG TAB PO ONE (21:48)
[2023-10-08] MEDS: ONDANSETRON 4 MG/2 ML VIAL IVP ONE (22:01)
[2023-10-08] MEDS ORDERED: ONDA-188 PO (22:11)
[2023-10-08] MEDS ORDERED: ACET-10509 PO (22:11)
[2023-10-08 22:32] VITALS: BP 122/81; PULSE 95; RESP 14; TEMP 97.4; O2SAT 97
== END 2023-10-08 22:32 | disposition home or self-care (01) ==
LOC: MED 19:35
DX: G40.501 Epileptic seizures related to external causes, not intractable, with status epilepticus (principal); R51.9 Headache, unspecified; Z79.899 Other long term (current) drug therapy; Z79.1 Long term (current) use of non-steroidal anti-inflammatories (NSAID)
CPT/HCPCS: 36415; 71045; 80048; 80173; 85025; 93005; 96365; 96375; 99285; J1885; J1953; J2405; Q0092

== ENCOUNTER 2023-10-24 20:49 | Emergency (ER) | payer OTHER ==
[~2023-10-24] VITALS: Ht 165.1 cm; Wt 78.0 kg
[2023-10-24 20:49] VITALS: BP 142/94; PULSE 79; RESP 16; TEMP 98.2; O2SAT 97
[~2023-10-24 20:49] MED LIST changes: +ACET-10509 PO; +ONDA-188 PO
[2023-10-24] MEDS ORDERED: levETIRAcetam 1,500 MG in NACL 0.9% 100 ML IV ONE (20:55)
[2023-10-24] MEDS ORDERED: levETIRAcetam 100 MG/ML VIAL IV ONE (21:25)
[2023-10-24 21:31] VITALS: BP 142/94; PULSE 115; RESP 16
[2023-10-24] MEDS: levETIRAcetam 1,000 MG in NACL 0.9% 100 ML IV ONE (21:45)
[2023-10-24 21:47] LABS: ANION GAP 11.4 (8-16); CALCIUM 8.4 mg/dL (8.5-10.1); CARBON DIOXIDE 24.8 mmol/L (21-32); CREATININE 0.6 mg/dL (0.6-1.3); POTASSIUM 4.2 mmol/L (3.5-5.1)
[2023-10-24 22:00] LABS: APPEARANCE,URINE CLEAR (CLEAR); BILIRUBIN,URINE NEGATIVE (NEGATIVE); BLOOD, URINE NEGATIVE (NEGATIVE); COLOR,URINE YELLOW (YELLOW); LEUKOCYTE ESTERASE ,URINE NEGATIVE (NEGATIVE); NITRITE, URINE NEGATIVE (NEGATIVE); PROTEIN,URINE TRACE (NEGATIVE); UGLUCOSE NEGATIVE (NEGATIVE); UROBILINOGEN,URINE 0.2 EU/dL (0.2 - 1)
[2023-10-24 22:03] VITALS: O2SAT 97
[2023-10-24 22:10] LABS: AMPHETAMINE, URINE NEGATIVE ng/ml (NEG <=1000); BARBITURATE, URINE NEGATIVE ng/ml (NEG <=200); BENZODIAZEPINE, URINE NEGATIVE ng/mL (NEG <=200); CANNABINOID, URINE NEGATIVE ng/mL (NEG <=50); COCAINE, URINE POSITIVE ng/mL (NEG <=300)
[2023-10-24 22:11] LABS: OPIATE, URINE NEGATIVE ng/mL (NEG <=2000); PHENCYCLIDINE SCREEN,URINE NEGATIVE ng/mL (NEG <=25)
== END 2023-10-24 22:29 | disposition home or self-care (01) ==
LOC: MED 20:49
DX: G40.89 Other seizures (principal); F14.90 Cocaine use, unspecified, uncomplicated; E87.1 Hypo-osmolality and hyponatremia; E83.51 Hypocalcemia; Z79.899 Other long term (current) drug therapy
CPT/HCPCS: 36415; 80048; 80305; 81003; 81025; 96365; 99284; J1953

== ENCOUNTER 2024-01-08 23:25 | Emergency (ER) | payer OTHER ==
[~2024-01-08] VITALS: Ht 165.1 cm; Wt 90.7 kg
[2024-01-08 23:27] VITALS: BP 133/61; PULSE 116; RESP 20; TEMP 98.4; O2SAT 96
[2024-01-09] MEDS ORDERED: levETIRAcetam 100 MG/ML VIAL IV ONE
[2024-01-09] MEDS: NACL 0.9% 1,000 ML IV ONE (00:08)
[2024-01-09] MEDS: levETIRAcetam 1,000 MG in NACL 0.9% 100 ML IV ONE (00:08)
[2024-01-09 01:12] LABS: BASOPHILS # (AUTO) 0.1 K/uL (0.00-0.22); BASOPHILS % (AUTO) 0.3 % (0.0-2.0); EOSINOPHILS # (AUTO) 0.4 K/uL (0-0.4); EOSINOPHILS % (AUTO) 2.5 % (0.0-4.0); HEMATOCRIT 44.2 % (36-48); HEMOGLOBIN 13.9 g/dL (12.0-16.0); LYMPHOCYTES # (AUTO) 2.1 K/uL (2.5-16.5); LYMPHOCYTES % (AUTO) 11.9 % (20.5-51.1); MEAN CORPUSCULAR HEMOGLOBIN 28 pg (27-31); MEAN CORPUSCULAR HGB CONC 32 g/dL (33-37); MEAN CORPUSCULAR VOLUME 87.1 fL (80-94); MONOCYTES # (AUTO) 0.9 K/uL (0.8-1.0); MONOCYTES % (AUTO) 5.5 % (1.7-9.3); NEUTROPHILS # (AUTO) 13.7 K/uL (1.8-7.7); NEUTROPHILS % (AUTO) 79.8 % (42.2-75.2); PLATELET COUNT (AUTO) 387 K/uL (140-450); RED BLOOD CELL COUNT(AUTO) 5.08 MIL/uL (4.20-5.40); RED CELL DISTRIBUTION WIDTH 15.9 % (11.6-13.7); WHITE BLOOD COUNT (AUTO) 17.3 K/uL (4.8-10.8)
[2024-01-09 01:22] LABS: ALBUMIN 3.4 g/dL (3.4-5.0); BILIRUBIN,DIRECT 0.1 mg/dL (0.0-0.3); MAGNESIUM 2.2 mg/dL (1.8-2.4); PHOSPHORUS 2.7 mg/dL (2.5-4.9); TOTAL BILIRUBIN 0.4 mg/dL (0.0-1.0); TOTAL PROTEIN, SERUM 6.7 g/dL (6.4-8.2)
[2024-01-09 01:33] LABS: APPEARANCE,URINE CLEAR (CLEAR); BILIRUBIN,URINE NEGATIVE (NEGATIVE); BLOOD, URINE NEGATIVE (NEGATIVE); COLOR,URINE YELLOW (YELLOW); LEUKOCYTE ESTERASE ,URINE NEGATIVE (NEGATIVE); NITRITE, URINE NEGATIVE (NEGATIVE); PH,URINE 6.5 (5.0-9.0); PROTEIN,URINE TRACE (NEGATIVE); UGLUCOSE NEGATIVE (NEGATIVE); UROBILINOGEN,URINE 0.2 EU/dL (0.2 - 1)
[2024-01-09 02:42] LABS: ANION GAP 14.9 (8-16); CALCIUM 8.1 mg/dL (8.5-10.1); CARBON DIOXIDE 24.8 mmol/L (21-32); CREATININE 0.7 mg/dL (0.6-1.3); POTASSIUM 3.7 mmol/L (3.5-5.1)
[2024-01-09 03:09] VITALS: BP 118/61; PULSE 92; RESP 20; TEMP 98.2; O2SAT 99
== END 2024-01-09 03:09 | disposition home or self-care (01) ==
LOC: MED 23:25
DX: G40.89 Other seizures (principal); Z79.1 Long term (current) use of non-steroidal anti-inflammatories (NSAID); Z79.899 Other long term (current) drug therapy
CPT/HCPCS: 36415; 80048; 80076; 81003; 81025; 83735; 84100; 85025; 93005; 96365; 99284; J1953; J7030

== ENCOUNTER 2024-02-10 23:14 | Emergency (ER) | payer OTHER ==
[~2024-02-10] VITALS: Ht 167.6 cm; Wt 117.9 kg
[2024-02-10 23:19] VITALS: BP 143/95; PULSE 105; RESP 14; TEMP 97.3; O2SAT 99
[2024-02-10 23:26] VITALS: TEMP 97.3
[2024-02-10 23:31] VITALS: BP 139/96; PULSE 116; RESP 14; O2SAT 96
[2024-02-10] MEDS ORDERED: levETIRAcetam 100 MG/ML VIAL IV ONE (23:39)
[2024-02-10] MEDS: levETIRAcetam 1,000 MG in NACL 0.9% 100 ML IV ONE (23:40)
[2024-02-11 00:04] LABS: APPEARANCE,URINE CLEAR (CLEAR); BILIRUBIN,URINE NEGATIVE (NEGATIVE); BLOOD, URINE 3+ (NEGATIVE); COLOR,URINE YELLOW (YELLOW); HEMATOCRIT 43.6 % (36-48); HEMOGLOBIN 14.2 g/dL (12.0-16.0); LEUKOCYTE ESTERASE ,URINE NEGATIVE (NEGATIVE); MEAN CORPUSCULAR HEMOGLOBIN 28 pg (27-31); MEAN CORPUSCULAR HGB CONC 33 g/dL (33-37); MEAN CORPUSCULAR VOLUME 85.6 fL (80-94); NITRITE, URINE NEGATIVE (NEGATIVE); PLATELET COUNT (AUTO) 364 K/uL (140-450); PROTEIN,URINE TRACE (NEGATIVE); RED BLOOD CELL COUNT(AUTO) 5.09 MIL/uL (4.20-5.40); RED CELL DISTRIBUTION WIDTH 14.8 % (11.6-13.7); UGLUCOSE NEGATIVE (NEGATIVE); UROBILINOGEN,URINE 0.2 EU/dL (0.2 - 1); WHITE BLOOD COUNT (AUTO) 21.1 K/uL (4.8-10.8)
[2024-02-11 00:13] LABS: BACTERIA,URINE 1+ /HPF (None Seen); RBC,URINE >100 /HPF (0-5); SQUAMOUS EPITHELIAL CELL,UR 4-10 (MOD) /LPF (0-3 (FEW)); WBC,URINE 0-5 /HPF (0-5)
[2024-02-11 00:15] LABS: AMPHETAMINE, URINE NEGATIVE ng/ml (NEG <=1000); BARBITURATE, URINE NEGATIVE ng/ml (NEG <=200); BENZODIAZEPINE, URINE NEGATIVE ng/mL (NEG <=200); CANNABINOID, URINE NEGATIVE ng/mL (NEG <=50); COCAINE, URINE POSITIVE ng/mL (NEG <=300); OPIATE, URINE NEGATIVE ng/mL (NEG <=2000); PHENCYCLIDINE SCREEN,URINE NEGATIVE ng/mL (NEG <=25)
[2024-02-11 00:20] LABS: EOSINOPHILS % (MANUAL) 2 % (0-4); LYMPHOCYTES % (MANUAL) 8 % (20-46); MONOCYTES % (MANUAL) 3 % (5-12)
[2024-02-11 00:29] LABS: ANION GAP 17.2 (8-16); CALCIUM 8.4 mg/dL (8.5-10.1); CARBON DIOXIDE 22.5 mmol/L (21-32); CREATININE 0.8 mg/dL (0.6-1.3); POTASSIUM 3.7 mmol/L (3.5-5.1)
[2024-02-11 00:35] LABS: ALBUMIN 3.7 g/dL (3.4-5.0); BILIRUBIN,DIRECT 0.1 mg/dL (0.0-0.3); TOTAL BILIRUBIN 0.5 mg/dL (0.0-1.0); TOTAL PROTEIN, SERUM 7.2 g/dL (6.4-8.2)
== END 2024-02-11 00:52 | disposition home or self-care (01) ==
LOC: MED 23:14
DX: R56.9 Unspecified convulsions (principal); F14.90 Cocaine use, unspecified, uncomplicated; Z79.899 Other long term (current) drug therapy
CPT/HCPCS: 36415; 80048; 80076; 80305; 81001; 85025; 96365; 99284; J1953

== ENCOUNTER 2024-02-19 16:19 | Emergency (ER) | payer OTHER ==
[~2024-02-19] VITALS: Ht 165.1 cm; Wt 122.5 kg
[2024-02-19 16:33] VITALS: BP 125/67; PULSE 115; RESP 20; TEMP 97.3; O2SAT 94
[2024-02-19 17:06] LABS: BASOPHILS # (AUTO) 0.1 K/uL (0.00-0.22); BASOPHILS % (AUTO) 0.5 % (0.0-2.0); EOSINOPHILS # (AUTO) 0.5 K/uL (0-0.4); EOSINOPHILS % (AUTO) 3.3 % (0.0-4.0); HEMATOCRIT 41.9 % (36-48); HEMOGLOBIN 13.5 g/dL (12.0-16.0); LYMPHOCYTES # (AUTO) 2.1 K/uL (2.5-16.5); LYMPHOCYTES % (AUTO) 13.6 % (20.5-51.1); MEAN CORPUSCULAR HEMOGLOBIN 27 pg (27-31); MEAN CORPUSCULAR HGB CONC 32 g/dL (33-37); MEAN CORPUSCULAR VOLUME 84.4 fL (80-94); MONOCYTES # (AUTO) 0.5 K/uL (0.8-1.0); MONOCYTES % (AUTO) 3.2 % (1.7-9.3); NEUTROPHILS # (AUTO) 12.1 K/uL (1.8-7.7); NEUTROPHILS % (AUTO) 79.4 % (42.2-75.2); PLATELET COUNT (AUTO) 368 K/uL (140-450); RED BLOOD CELL COUNT(AUTO) 4.96 MIL/uL (4.20-5.40); RED CELL DISTRIBUTION WIDTH 14.3 % (11.6-13.7); WHITE BLOOD COUNT (AUTO) 15.3 K/uL (4.8-10.8)
[2024-02-19 17:19] LABS: ANION GAP 16.4 (8-16); CARBON DIOXIDE 23.2 mmol/L (21-32); CREATININE 0.8 mg/dL (0.6-1.3); POTASSIUM 3.6 mmol/L (3.5-5.1)
[2024-02-19 17:23] LABS: ALBUMIN 3.4 g/dL (3.4-5.0); BILIRUBIN,DIRECT 0.1 mg/dL (0.0-0.3); TOTAL BILIRUBIN 0.4 mg/dL (0.0-1.0); TOTAL PROTEIN, SERUM 6.9 g/dL (6.4-8.2)
[2024-02-19] MEDS ORDERED: levETIRAcetam 100 MG/ML VIAL IV ONE (17:42)
[2024-02-19] MEDS: levETIRAcetam 1,000 MG in NACL 0.9% 100 ML IV ONE (18:05)
[2024-02-19] MEDS ORDERED: KEP500 PO (18:13)
[2024-02-19 18:34] VITALS: BP 125/67; PULSE 118; RESP 22; TEMP 98.2; O2SAT 93
== END 2024-02-19 18:33 | disposition home or self-care (01) ==
LOC: MED 16:19
DX: G40.909 Epilepsy, unspecified, not intractable, without status epilepticus (principal); R41.82 Altered mental status, unspecified; Z79.899 Other long term (current) drug therapy
CPT/HCPCS: 36415; 80048; 80076; 85025; 96365; 99284; J1953

== ENCOUNTER 2024-03-04 11:09 | Emergency (ER) | payer OTHER ==
[~2024-03-04] VITALS: Ht 160 cm; Wt 81.6 kg
[~2024-03-04 11:09] MED LIST changes: +KEP500 PO
[2024-03-04 11:14] VITALS: BP 153/100; PULSE 124; RESP 22; TEMP 98.5; O2SAT 96
[2024-03-04] MEDS ORDERED: KETOROLAC 15 MG/ML VIAL ONE (11:49)
[2024-03-04] MEDS ORDERED: levETIRAcetam 100 MG/ML VIAL IV ONE (11:56)
[2024-03-04] MEDS: levETIRAcetam 1,000 MG in NACL 0.9% 100 ML IV ONE (12:00)
[2024-03-04] MEDS: NACL 0.9% 1,000 ML IV ONE (12:01)
[2024-03-04] MEDS: KETOROLAC 30 MG/ML VIAL IVP ONE (12:01)
[2024-03-04 13:30] VITALS: BP 106/59; PULSE 105; RESP 20; TEMP 98.5; O2SAT 98
== END 2024-03-04 13:31 | disposition home or self-care (01) ==
LOC: MED 11:09
DX: R56.9 Unspecified convulsions (principal); Z79.1 Long term (current) use of non-steroidal anti-inflammatories (NSAID); Z79.899 Other long term (current) drug therapy
CPT/HCPCS: 82948; 93005; 96365; 96375; 99284; J1885; J1953; J7030

== ENCOUNTER 2024-04-27 11:30 | Emergency (ER) | payer OTHER ==
[~2024-04-27] VITALS: Ht 160 cm; Wt 81.6 kg
[2024-04-27 11:30] VITALS: BP 135/77; PULSE 93; RESP 18; TEMP 98.7; O2SAT 96
[~2024-04-27 11:30] MED LIST changes: -ACET-10509 PO; +ACET500T99 PO
--- NOTE | 2024-04-27 11:34 | NUR ---
[facility] TO ER BED 3
--- NOTE | 2024-04-27 11:43 | NUR ---
23YO FEMALE PT BIBA HOME S/P SEIZURES. PER EMS, MULTIPLE FOCAL SEIZURES WITNESSED BY MOM. ON ARRIVAL, PT AAOX4 W/ DELAYED CLEAR SPEECH. NO ORAL TRAUMA OR INCONTINENCE NOTED. STATES BEING COMPLIANT W/ RX KEPPRA 1000MG TID. DENIES CHEST PAIN,SOB, N/V/D, DIZZINESS, CHANGE IN VISION OR INJURY. ON TUBER HELPER. SEIZURE PADS IN PLACE. BED AT LOWEST POSITION, BED RAILS UPX2. HX: SEIZURE NKA
--- NOTE | 2024-04-27 12:00 | NUR ---
MD GILLIAM AT BEDSIDE FOR EVALUATION
--- NOTE | 2024-04-27 13:15 | NUR ---
pt awake and at rest. on mouse breeder. call light within reach. pending tele neuro.
[2024-04-27 14:06] VITALS: O2SAT 98
--- NOTE | 2024-04-27 14:25 | NUR ---
pt c/o 06/07 headache. MADE AWARE Addendum: 04/27/24 at 1438 by PHSEP pt refused medication. " ill ask for it when I want to". MADE AWARE
[2024-04-27] MEDS: ACETAMINOPHEN EXTRA STRENGTH 500 MG TAB PO ONE (14:34)
--- NOTE | 2024-04-27 15:10 | NUR ---
TELENEURO DR. CAMPOS DESULPHURING OPERATOR W/ PT AND FAMILY AT BEDSIDE.
[2024-04-27] MEDS ORDERED: LEVE750T3 PO (15:42)
[2024-04-27 15:47] VITALS: BP 121/72; PULSE 66; RESP 16; TEMP 98.1; O2SAT 99
--- NOTE | 2024-04-27 15:47 | NUR ---
Patient discharged with v/s stable. Written and verbal after care instructions FOR SEIZURE given and explained. Patient alert, oriented and verbalized understanding of instructions. Ambulatory with steady gait. All questions addressed prior to discharge. ID band removed. Patient advised to follow up with PMD. Rx of LEXIE given.Opportunity to ask questions provided and answered.
--- NOTE | 2024-04-27 16:29 | NUR ---
Chart checked and completed. The patient's care was reviewed and supervised by LEONIDES FRITZ RN.
== END 2024-04-27 15:47 | disposition home or self-care (01) ==
LOC: MED 11:30
DX: S80.212A Abrasion, left knee, initial encounter (principal); S80.211A Abrasion, right knee, initial encounter; S90.511A Abrasion, right ankle, initial encounter; G40.509 Epileptic seizures related to external causes, not intractable, without status epilepticus; Z79.899 Other long term (current) drug therapy; W18.39XA Other fall on same level, initial encounter; Y92.89 Other specified places as the place of occurrence of the external cause; Y93.89 Activity, other specified; Y99.8 Other external cause status
CPT/HCPCS: 82948; 99283

== ENCOUNTER 2024-06-26 23:20 | Emergency (ER) | payer OTHER ==
[~2024-06-26] VITALS: Ht 160 cm; Wt 113.4 kg
[~2024-06-26 23:20] MED LIST changes: +LEVE750T3 PO
[2024-06-26 23:25] VITALS: BP 140/92; PULSE 110; RESP 16; TEMP 98.2; O2SAT 98
[2024-06-26] MEDS: ACETAMINOPHEN EXTRA STRENGTH 500 MG TAB PO ONE (23:58)
[2024-06-27 00:11] VITALS: BP 112/68; PULSE 82; RESP 16; TEMP 98.1; O2SAT 98
== END 2024-06-27 00:10 | disposition home or self-care (01) ==
LOC: MED 23:20
DX: G40.509 Epileptic seizures related to external causes, not intractable, without status epilepticus (principal); R03.0 Elevated blood-pressure reading, without diagnosis of hypertension; Z79.899 Other long term (current) drug therapy
CPT/HCPCS: 99283